=== PATIENT | male | born 1935 | race Caucasian/White ===

== ENCOUNTER 2019-07-20 11:56 | Inpatient (IN) | payer MEDICARE, OTHER ==
[~2019-07-20] VITALS: Ht 180.3 cm; Wt 117.9 kg
[2019-07-20] MEDS ORDERED: HYDROCODONE/ACETAMINOPHEN 5/325MG TABLET PO STA (12:14)
[2019-07-20] MEDS ORDERED: PREDNISONE 20MG TABLET PO ONE (12:15)
[2019-07-20 12:51] LABS: BASOPHILS % 0.8 % (0.0-2.0); HEMATOCRIT. 31.4 % (42.0-52.0); HEMOGLOBIN. 10.4 g/dL (14.0-18.0); LYMPHOCYTES % 9.7 % (20.0-50.0); MEAN CORPUSCULAR HEMOGLOBIN 28.6 pg (28.0-32.0); MEAN CORPUSCULAR VOLUME 86.2 fL (80.0-94.0); MONOCYTES % 5.9 % (2.0-8.0); NEUTROPHILS % 80.6 % (40.0-76.0); PLATELET 229 x1000/uL (130-400); RED BLOOD CELL COUNT 3.64 mill/uL (4.7-6.1); RED CELL DISTRIBUTION WIDTH 15.1 % (11.6-14.6)
[2019-07-20 12:58] LABS: CHLORIDE 95 mEq/L (98-107)
[2019-07-20 12:59] LABS: PROTHROMBIN TIME 10.8 sec (9.6-11.0)
[2019-07-20 17:42] LABS: CLARITY URINE CLOUDY (CLEAR); COLOR URINE YELLOW (YELLOW); KETONES URINE NEGATIVE (NEGATIVE); LEUKOCYTE ESTERASE URINE TRACE (NEGATIVE); NITRITE URINE NEGATIVE (NEGATIVE); OCCULT BLOOD URINE NEGATIVE (NEGATIVE); PROTEIN URINE 2+ (NEGATIVE); SPECIFIC GRAVITY URINE 1.013 (1.005-1.030)
[2019-07-20 23:00] VITALS: BP 162/84
[2019-07-21] MEDS ORDERED: DEXTROSE 50% WATER 50ML SYRINGE IV PRN (00:15)
[2019-07-21] MEDS ORDERED: HYDROCODONE/ACETAMINOPHEN 5/325MG TABLET PO PRN (00:15)
[2019-07-21] MEDS ORDERED: CLONIDINE 0.1MG TABLET PO PRN (00:15)
[2019-07-21] MEDS ORDERED: ALLO300T2 MT (00:42)
[2019-07-21] MEDS ORDERED: ATOR20TA MT (00:43)
[2019-07-21 07:01] LABS: BASOPHILS % 0.2 % (0.0-2.0); HEMATOCRIT. 26.3 % (42.0-52.0); HEMOGLOBIN. 8.7 g/dL (14.0-18.0); LYMPHOCYTES % 7.8 % (20.0-50.0); MEAN CORPUSCULAR HEMOGLOBIN 28.2 pg (28.0-32.0); MEAN CORPUSCULAR VOLUME 84.7 fL (80.0-94.0); MEAN PLATELET VOLUME 8.1 fl (7.4-10.4); MONOCYTES % 5.2 % (2.0-8.0); NEUTROPHILS % 86.8 % (40.0-76.0); PLATELET 246 x1000/uL (130-400); RED CELL DISTRIBUTION WIDTH 14.7 % (11.6-14.6)
[2019-07-21 07:21] LABS: CHLORIDE 99 mEq/L (98-107)
[2019-07-21 07:30] LABS: CREATINE KINASE 97 IU/L (39-308)
[2019-07-21] MEDS: INSULIN LISPRO 100 UNITS/ML SUBCUT SCH ×4 (07:52→21:00)
[2019-07-21 08:00] VITALS: BP 103/61
[2019-07-21] MEDS: BLOOD SUGAR DIAGNOSTIC STRIP TEST SCH ×4 (08:12→20:58)
[2019-07-21] MEDS: LACTULOSE 20G/30ML UDC PO SCH (09:42)
[2019-07-21] MEDS: ALLOPURINOL 300 MG TABLET PO SCH (09:42)
[2019-07-21 12:00] VITALS: BP 134/66
[2019-07-21] MEDS: PREDNISONE 20MG TABLET PO SCH (14:38)
[2019-07-21] MEDS: PANTOPRAZOLE 40MG DR TABLET PO SCH (14:38)
[2019-07-21 16:00] VITALS: BP 110/55
[2019-07-21 20:00] VITALS: BP 129/78
[2019-07-21] MEDS ORDERED: ATORVASTATIN CALCIUM 20MG TABLET PO SCH (21:00)
[2019-07-21 23:11] LABS: CLARITY URINE CLOUDY (CLEAR); COLOR URINE YELLOW (YELLOW); KETONES URINE NEGATIVE (NEGATIVE); LEUKOCYTE ESTERASE URINE NEGATIVE (NEGATIVE); NITRITE URINE NEGATIVE (NEGATIVE); OCCULT BLOOD URINE NEGATIVE (NEGATIVE); PROTEIN URINE TRACE (NEGATIVE); UROBILINOGEN URINE 0.2 E.U./dL (0.2-1.0)
[2019-07-22] VITALS: BP 142/77
[2019-07-22 04:00] VITALS: BP 140/69
[2019-07-22] MEDS: PANTOPRAZOLE 40MG DR TABLET PO SCH (06:25)
[2019-07-22] MEDS: BLOOD SUGAR DIAGNOSTIC STRIP TEST SCH ×3 (06:29→17:50)
[2019-07-22 07:48] LABS: BASOPHILS % 0.2 % (0.0-2.0); EOSINOPHILS % 0.4 % (0.0-5.0); HEMATOCRIT. 26.1 % (42.0-52.0); HEMOGLOBIN. 8.6 g/dL (14.0-18.0); LYMPHOCYTES % 11.2 % (20.0-50.0); MEAN CORPUSCULAR HEMOGLOBIN 27.9 pg (28.0-32.0); MEAN CORPUSCULAR VOLUME 84.8 fL (80.0-94.0); MONOCYTES % 3.9 % (2.0-8.0); NEUTROPHILS % 84.3 % (40.0-76.0); PLATELET 283 x1000/uL (130-400); RED BLOOD CELL COUNT 3.07 mill/uL (4.7-6.1); RED CELL DISTRIBUTION WIDTH 14.9 % (11.6-14.6)
[2019-07-22 08:03] LABS: CHLORIDE 99 mEq/L (98-107)
[2019-07-22 08:13] LABS: PHOSPHORUS 3.1 mg/dL (2.5-4.9)
[2019-07-22 08:14] LABS: LDL CHOLESTEROL 82 mg/dL (5-100)
[2019-07-22 08:16] LABS: HDL CHOLESTEROL 37 mg/dL (40-59)
[2019-07-22] MEDS: ALLOPURINOL 300 MG TABLET PO SCH (08:36)
[2019-07-22] MEDS: PREDNISONE 20MG TABLET PO SCH (08:36)
[2019-07-22] MEDS: LACTULOSE 20G/30ML UDC PO SCH (08:36)
[2019-07-22] MEDS: INSULIN LISPRO 100 UNITS/ML SUBCUT SCH ×3 (08:40→18:00)
[2019-07-22] MEDS ORDERED: BISACODYL 10MG SUPP PR NR (13:45)
[2019-07-22] MEDS ORDERED: GLIP5TAB12 MT (13:46)
[2019-07-22] MEDS ORDERED: FAMO20TA8 PO (13:46)
[2019-07-22] MEDS ORDERED: PRED5TAB48 MT (13:46)
[2019-07-22] MEDS ORDERED: POLY119P2 MT (13:46)
[2019-07-22 16:58] VITALS: BP 134/66
[2019-07-22 19:35] VITALS: BP 139/73
[2019-07-23] MEDS ORDERED: FAMOTIDINE 20MG TABLET PO SCH (09:00)
== END 2019-07-22 20:43 | disposition home or self-care (01) | DRG 683 ==
LOC: ER 11:56 → 6EST 17:01 → EDBEDREQTM 17:05 → EDBEDREQ 17:05 → ENRESERV 20:22
PROVIDERS: ADMIT Internal Medicine; ATTEND Internal Medicine
DX: N17.9 Acute kidney failure, unspecified (principal); E87.1 Hypo-osmolality and hyponatremia; D64.9 Anemia, unspecified; M10.022 Idiopathic gout, left elbow; M10.021 Idiopathic gout, right elbow; M10.062 Idiopathic gout, left knee; M10.061 Idiopathic gout, right knee; E11.22 Type 2 diabetes mellitus with diabetic chronic kidney disease; E66.9 Obesity, unspecified; E11.65 Type 2 diabetes mellitus with hyperglycemia; E78.5 Hyperlipidemia, unspecified; F17.210 Nicotine dependence, cigarettes, uncomplicated; I12.9 Hypertensive chronic kidney disease with stage 1 through stage 4 chronic kidney disease, or unspecified chronic kidney disease; N18.3 Chronic kidney disease, stage 3 (moderate); Z79.84 Long term (current) use of oral hypoglycemic drugs; Z79.899 Other long term (current) drug therapy; Z68.36 Body mass index [BMI] 36.0-36.9, adult
CPT/HCPCS: 36415; 71045; 76770; 80048; 80061; 81003; 82550; 82570; 82784; 82962; 83036; 83735; 84100; 84155; 84156; 84165; 84300; 84484; 84550; 84560; 86334; 93970; 97162; 99285; J1815; J7512

== ENCOUNTER 2020-07-11 12:31 | Inpatient (IN) | payer MEDICARE, OTHER ==
[~2020-07-11] VITALS: Ht 180.3 cm; Wt 127.0 kg
[~2020-07-11 12:31] MED LIST: ALLO300T2 MT; ATOR20TA MT; FAMO20TA8 PO; GLIP5TAB12 MT; POLY119P2 MT; PRED5TAB48 MT
[2020-07-11] MEDS ORDERED: VANCOMYCIN 1 G PREMIX 200 ML IV SCH (13:15)
[2020-07-11] MEDS ORDERED: SODIUM CHLORIDE 0.9% 1000ML BAG (SEPSIS BOLUS) IV ONE (13:15)
[2020-07-11] MEDS ORDERED: PIPERACILLIN/TAZOBACTAM 3.375GM/50ML PREMIX IV ONE (13:15)
[2020-07-11] MEDS ORDERED: PIPERACILLIN/TAZ 3.375G PREMIX 50 ML IV ONE (13:30)
[2020-07-11 13:52] LABS: BASOPHILS % 0.9 % (0.0-2.0); EOSINOPHILS % 4.6 % (0.0-5.0); LYMPHOCYTES % 8.7 % (20.0-50.0); MEAN CORPUSCULAR HEMOGLOBIN 24.6 pg (28.0-32.0); MEAN CORPUSCULAR VOLUME 78.2 fL (80.0-94.0); MEAN PLATELET VOLUME 7.1 fl (7.4-10.4); MONOCYTES % 6.4 % (2.0-8.0); NEUTROPHILS % 79.4 % (40.0-76.0); PLATELET 355 x1000/uL (130-400); RED BLOOD CELL COUNT 2.27 mill/uL (4.7-6.1); RED CELL DISTRIBUTION WIDTH 16.4 % (11.6-14.6)
[2020-07-11 13:57] LABS: CHLORIDE 107 mEq/L (98-107); HEMATOCRIT. 17.7 % (42.0-52.0); HEMOGLOBIN. 5.6 g/dL (14.0-18.0)
[2020-07-11] MEDS ORDERED: DEXTROSE 50% WATER 50ML SYRINGE IV ONE (19:00)
[2020-07-11] MEDS ORDERED: GUAIFENESIN 200MG/10ML SUGAR FREE UDC PO PRN (19:00)
[2020-07-11] MEDS ORDERED: ACETAMINOPHEN 325MG TABLET PO PRN ×2 (19:00)
[2020-07-11] MEDS ORDERED: MAGNESIUM/ALUMINUM HYDROXIDE/SIMETHICONE 30ML UDC PO PRN (19:00)
[2020-07-11] MEDS ORDERED: NITROGLYCERIN 0.4MG TABLET SL SL PRN (19:00)
[2020-07-11] MEDS ORDERED: IPRATROPIUM/ALBUTEROL 0.5-3(2.5)MG/3ML NEB NEB PRN (19:00)
[2020-07-11] MEDS ORDERED: DEXTROSE 50% WATER 50ML SYRINGE IV PRN (19:00)
[2020-07-11] MEDS ORDERED: ONDANSETRON HCL 4MG/2ML INJ IV PRN (19:00)
[2020-07-11 19:54] LABS: CLARITY URINE CLEAR (CLEAR); COLOR URINE YELLOW (YELLOW); KETONES URINE NEGATIVE (NEGATIVE); LEUKOCYTE ESTERASE URINE TRACE (NEGATIVE); NITRITE URINE NEGATIVE (NEGATIVE); OCCULT BLOOD URINE 2+ (NEGATIVE); PROTEIN URINE 2+ (NEGATIVE); SPECIFIC GRAVITY URINE 1.018 (1.005-1.030)
[2020-07-11] MEDS ORDERED: CEFTRIAXONE 1 G PREMIX 50 ML IV SCH (20:00)
[2020-07-11] MEDS ORDERED: ZOLPIDEM TARTRATE 5MG TABLET PO PRN (20:00)
[2020-07-11 20:14] LABS: *BARBITURATES SCREEN URINE NEGATIVE (NEGATIVE); METHADONE URINE SCREEN NEGATIVE (NEGATIVE); OPIATES URINE SCREEN NEGATIVE (NEGATIVE); PHENCYCLIDINE URINE SCREEN NEGATIVE (NEGATIVE)
[2020-07-11 20:15] VITALS: BP 128/54
[2020-07-11 20:15] LABS: *AMPHETAMINES SCREEN URINE NEGATIVE (NEGATIVE); *BENZODIAZEPINES SCREEN URINE NEGATIVE (NEGATIVE); *COCAINE SCREEN URINE NEGATIVE (NEGATIVE); CANNABINOID URINE SCREEN NEGATIVE (NEGATIVE)
[2020-07-11 20:18] LABS: T4 FREE 1.2 ng/dL (0.76-1.46)
[2020-07-11 20:28] LABS: FOLIC ACID (FOLATE) SERUM 11.2 ng/mL (>5.38)
[2020-07-11] MEDS: INSULIN LISPRO 100 UNITS/ML SUBCUT SCH (21:00)
[2020-07-11] MEDS: BLOOD SUGAR DIAGNOSTIC STRIP TEST SCH (21:00)
[2020-07-11 21:20] VITALS: BP 141/55
[2020-07-11] MEDS: PANTOPRAZOLE SODIUM 40 MG/VIAL IV SCH (21:40)
[2020-07-11] MEDS: DEXT 5%/LACTATED RINGERS 1,000 ML IV SCH (22:35)
[2020-07-12] VITALS (16 sets, daily range): BP systolic 94–151; BP diastolic 35–77
[2020-07-12 00:15] LABS: CREATINE KINASE MB FRACTION 8.5 ng/mL (0.5-3.6)
[2020-07-12] MEDS: CEFTRIAXONE 1,000 MG in DEXTROSE 5% WATER 50 ML IV SCH ×2 (00:39→23:11)
[2020-07-12 00:46] LABS: CREATINE KINASE 1340 IU/L (39-308)
[2020-07-12] MEDS: BLOOD SUGAR DIAGNOSTIC STRIP TEST SCH ×4 (05:42→21:28)
[2020-07-12 06:33] LABS: BASOPHILS % 0.4 % (0.0-2.0); EOSINOPHILS % 7.9 % (0.0-5.0); LYMPHOCYTES % 9.6 % (20.0-50.0); MEAN CORPUSCULAR HEMOGLOBIN 25.9 pg (28.0-32.0); MEAN CORPUSCULAR VOLUME 79.1 fL (80.0-94.0); MEAN PLATELET VOLUME 7.6 fl (7.4-10.4); MONOCYTES % 5.6 % (2.0-8.0); NEUTROPHILS % 76.5 % (40.0-76.0); PLATELET 338 x1000/uL (130-400); RED BLOOD CELL COUNT 2.46 mill/uL (4.7-6.1); RED CELL DISTRIBUTION WIDTH 16.7 % (11.6-14.6)
[2020-07-12 06:42] LABS: CHLORIDE 109 mEq/L (98-107)
[2020-07-12 06:48] LABS: PHOSPHORUS 3.1 mg/dL (2.5-4.9)
[2020-07-12 06:51] LABS: CREATINE KINASE 986 IU/L (39-308); HEMATOCRIT. 19.5 % (42.0-52.0); HEMOGLOBIN. 6.4 g/dL (14.0-18.0)
[2020-07-12 06:52] LABS: CREATINE KINASE MB FRACTION 7.6 ng/mL (0.5-3.6)
[2020-07-12] MEDS: INSULIN LISPRO 100 UNITS/ML SUBCUT SCH ×4 (07:08→21:00)
[2020-07-12] MEDS: DEXT 5%/LACTATED RINGERS 1,000 ML IV SCH ×2 (09:39→21:29)
[2020-07-12] MEDS: PANTOPRAZOLE SODIUM 40 MG/VIAL IV SCH ×2 (10:03→21:25)
[2020-07-12] MEDS: DOCUSATE SODIUM 250MG CAPSULE PO SCH ×2 (10:04→16:52)
[2020-07-12 16:04] LABS: HEMATOCRIT 41.4 % (42.0-52.0); HEMOGLOBIN 13.4 g/dL (14.0-18.0)
[2020-07-12 16:11] LABS: PROTHROMBIN TIME 10.8 sec (9.6-11.0)
[2020-07-13] VITALS (7 sets, daily range): BP systolic 120–148; BP diastolic 52–66
[2020-07-13] MEDS: BLOOD SUGAR DIAGNOSTIC STRIP TEST SCH ×3 (06:50→21:00)
[2020-07-13] MEDS: INSULIN LISPRO 100 UNITS/ML SUBCUT SCH ×3 (06:50→22:13)
[2020-07-13 08:54] LABS: CHLORIDE 110 mEq/L (98-107)
[2020-07-13 09:01] LABS: BASOPHILS % 0.7 % (0.0-2.0); EOSINOPHILS % 9.9 % (0.0-5.0); LYMPHOCYTES % 16.4 % (20.0-50.0); MEAN CORPUSCULAR HEMOGLOBIN 26.7 pg (28.0-32.0); MEAN CORPUSCULAR VOLUME 80.2 fL (80.0-94.0); MEAN PLATELET VOLUME 7.7 fl (7.4-10.4); MONOCYTES % 6.2 % (2.0-8.0); NEUTROPHILS % 66.8 % (40.0-76.0); PLATELET 320 x1000/uL (130-400); RED BLOOD CELL COUNT 2.61 mill/uL (4.7-6.1); RED CELL DISTRIBUTION WIDTH 16.4 % (11.6-14.6)
[2020-07-13 09:05] LABS: PHOSPHORUS 3.2 mg/dL (2.5-4.9)
[2020-07-13 09:06] LABS: HEMATOCRIT. 20.9 % (42.0-52.0)
[2020-07-13] MEDS: PANTOPRAZOLE SODIUM 40 MG/VIAL IV SCH ×2 (09:42→22:12)
[2020-07-13] MEDS: DOCUSATE SODIUM 250MG CAPSULE PO SCH ×2 (09:43→18:22)
[2020-07-13] MEDS: DEXT 5%/LACTATED RINGERS 1,000 ML IV SCH (09:44)
[2020-07-13] MEDS ORDERED: SORBITOL 70% SOLN 30ML PO NR ×2 (17:15→21:15)
[2020-07-13] MEDS: METOCLOPRAMIDE HCL 5MG TABLET PO SCH ×2 (18:27→22:12)
[2020-07-13] MEDS: CEFTRIAXONE 1,000 MG in DEXTROSE 5% WATER 50 ML IV SCH (22:16)
[2020-07-13 23:59] LABS: HEMATOCRIT 21.8 % (42.0-52.0); HEMOGLOBIN 7.1 g/dL (14.0-18.0)
[2020-07-14] VITALS: BP 107/65
[2020-07-14 04:00] VITALS: BP 115/56
[2020-07-14] MEDS ORDERED: SORBITOL 70% SOLN 30ML PO NR ×2 (07:00→18:00)
[2020-07-14 07:40] LABS: HEMATOCRIT 21.1 % (42.0-52.0); HEMOGLOBIN 7.1 g/dL (14.0-18.0)
[2020-07-14] MEDS: INSULIN LISPRO 100 UNITS/ML SUBCUT SCH ×4 (07:40→21:00)
[2020-07-14 08:00] VITALS: BP 134/59
[2020-07-14] MEDS: DEXT 5%/LACTATED RINGERS 1,000 ML IV SCH ×3 (08:00→20:31)
[2020-07-14] MEDS: BLOOD SUGAR DIAGNOSTIC STRIP TEST SCH ×4 (08:00→21:09)
[2020-07-14] MEDS: DOCUSATE SODIUM 250MG CAPSULE PO SCH ×2 (09:43→16:19)
[2020-07-14] MEDS: PANTOPRAZOLE SODIUM 40 MG/VIAL IV SCH ×2 (09:43→20:31)
[2020-07-14 12:09] LABS: HEMATOCRIT 21.7 % (42.0-52.0); HEMOGLOBIN 7.1 g/dL (14.0-18.0)
[2020-07-14] MEDS ORDERED: MIDAZOLAM HCL 5 MG/5 ML VIAL ONE (13:53)
[2020-07-14] MEDS ORDERED: FENTANYL CITRATE/PF 50MCG/ML 2ML VIAL ONE (13:53)
[2020-07-14] MEDS ORDERED: FENTANYL CITRATE/PF 50MCG/ML 2ML VIAL IV ONE (14:00)
[2020-07-14] MEDS ORDERED: MIDAZOLAM HCL 5 MG/5 ML VIAL IV PRN (14:03)
[2020-07-14 16:00] VITALS: BP_SYST 139
[2020-07-14 20:00] VITALS: BP 154/77
[2020-07-14] MEDS: CEFTRIAXONE 1,000 MG in DEXTROSE 5% WATER 50 ML IV SCH (22:02)
[2020-07-15] VITALS: BP 142/69
[2020-07-15 04:00] VITALS: BP 156/82
[2020-07-15] MEDS: BLOOD SUGAR DIAGNOSTIC STRIP TEST SCH ×4 (06:39→20:01)
[2020-07-15] MEDS: INSULIN LISPRO 100 UNITS/ML SUBCUT SCH ×4 (06:39→20:05)
[2020-07-15 08:00] VITALS: BP 135/60
[2020-07-15] MEDS ORDERED: SORBITOL 70% SOLN 30ML PO NR (08:00)
[2020-07-15 09:06] LABS: HEMATOCRIT 22.5 % (42.0-52.0); HEMOGLOBIN 7.5 g/dL (14.0-18.0)
[2020-07-15] MEDS: DOCUSATE SODIUM 250MG CAPSULE PO SCH ×2 (09:21→18:46)
[2020-07-15] MEDS: PANTOPRAZOLE SODIUM 40 MG/VIAL IV SCH ×2 (09:21→20:01)
[2020-07-15] MEDS ORDERED: NA PHOS,M-B/NA PHOS,DI-BA ENEMA 118ML PR NR ×2 (11:00→12:00)
[2020-07-15] MEDS: AMMONIUM LACTATE 12% LOTION 240ML TOP SCH ×2 (11:36→18:47)
[2020-07-15 12:00] VITALS: BP 170/78
[2020-07-15] MEDS: CLONIDINE 0.1MG TABLET PO PRN (14:41)
[2020-07-15] MEDS ORDERED: FENTANYL CITRATE/PF 50MCG/ML 2ML VIAL ONE (15:55)
[2020-07-15] MEDS ORDERED: MIDAZOLAM HCL 5 MG/5 ML VIAL ONE (15:55)
[2020-07-15] MEDS ORDERED: SIMETHICONE 40 MG/0.6 ML 30ML ONE (16:09)
[2020-07-15] MEDS ORDERED: FENTANYL CITRATE/PF 50MCG/ML 2ML VIAL IV PRN (16:32)
[2020-07-15] MEDS ORDERED: MIDAZOLAM HCL 5 MG/5 ML VIAL IV PRN (16:33)
[2020-07-15] MEDS: DEXT 5%/LACTATED RINGERS 1,000 ML IV SCH (18:47)
[2020-07-15 20:00] VITALS: BP 140/62
[2020-07-15] MEDS: CEFTRIAXONE 1,000 MG in DEXTROSE 5% WATER 50 ML IV SCH (23:25)
[2020-07-16] VITALS: BP 131/62
[2020-07-16 04:00] VITALS: BP 121/62
[2020-07-16 08:00] VITALS: BP 143/64
[2020-07-16] MEDS: AMMONIUM LACTATE 12% LOTION 240ML TOP SCH ×2 (08:41→17:02)
[2020-07-16] MEDS: DOCUSATE SODIUM 250MG CAPSULE PO SCH ×2 (08:41→17:02)
[2020-07-16] MEDS: PANTOPRAZOLE SODIUM 40 MG/VIAL IV SCH ×2 (08:41→20:39)
[2020-07-16 12:00] VITALS: BP 157/78
[2020-07-16] MEDS: INSULIN LISPRO 100 UNITS/ML SUBCUT SCH ×3 (12:25→20:40)
[2020-07-16] MEDS: BLOOD SUGAR DIAGNOSTIC STRIP TEST SCH ×3 (12:25→20:39)
[2020-07-16] MEDS ORDERED: DIATR MEGLU/DIATRIZOATE SOLN 120ML ONE ×2 (12:57→13:18)
[2020-07-16 16:00] VITALS: BP 150/72
[2020-07-16] MEDS: DEXT 5%/LACTATED RINGERS 1,000 ML IV SCH (18:34)
[2020-07-16 20:00] VITALS: BP 127/63
[2020-07-16] MEDS: CEFTRIAXONE 1,000 MG in DEXTROSE 5% WATER 50 ML IV SCH (23:05)
[2020-07-17] VITALS: BP 118/66
[2020-07-17 04:00] VITALS: BP 122/60
[2020-07-17] MEDS: INSULIN LISPRO 100 UNITS/ML SUBCUT SCH ×4 (06:20→20:58)
[2020-07-17] MEDS: BLOOD SUGAR DIAGNOSTIC STRIP TEST SCH ×4 (06:20→20:58)
[2020-07-17 08:00] VITALS: BP 126/58
[2020-07-17] MEDS: DOCUSATE SODIUM 250MG CAPSULE PO SCH ×2 (08:19→16:49)
[2020-07-17] MEDS: PANTOPRAZOLE SODIUM 40 MG/VIAL IV SCH ×2 (08:19→20:58)
[2020-07-17] MEDS: DEXT 5%/LACTATED RINGERS 1,000 ML IV SCH (08:30)
[2020-07-17] MEDS: AMMONIUM LACTATE 12% LOTION 240ML TOP SCH ×2 (09:00→16:49)
[2020-07-17 17:34] LABS: HEMATOCRIT 23.1 % (42.0-52.0); HEMOGLOBIN 7.4 g/dL (14.0-18.0)
[2020-07-17 20:00] VITALS: BP 145/71
[2020-07-18 00:24] VITALS: BP 134/69
[2020-07-18 04:25] VITALS: BP 148/75
[2020-07-18] MEDS: INSULIN LISPRO 100 UNITS/ML SUBCUT SCH ×4 (06:08→21:53)
[2020-07-18] MEDS: BLOOD SUGAR DIAGNOSTIC STRIP TEST SCH ×4 (06:08→21:54)
[2020-07-18 08:00] VITALS: BP 140/70
[2020-07-18] MEDS: ZINC SULFATE 220 MG ( 50 ) CAPSULE PO SCH (09:37)
[2020-07-18] MEDS: PANTOPRAZOLE SODIUM 40 MG/VIAL IV SCH ×2 (09:37→21:52)
[2020-07-18] MEDS: DOCUSATE SODIUM 250MG CAPSULE PO SCH ×2 (09:37→16:45)
[2020-07-18] MEDS: ASCORBIC ACID 500 MG TABLET PO SCH (09:37)
[2020-07-18] MEDS: AMMONIUM LACTATE 12% LOTION 240ML TOP SCH ×2 (10:02→16:50)
[2020-07-18 12:00] VITALS: BP 138/72
[2020-07-18 16:00] VITALS: BP 144/71
[2020-07-18 20:00] VITALS: BP 131/51
[2020-07-19] VITALS: BP 130/65
[2020-07-19 04:00] VITALS: BP 161/75
[2020-07-19] MEDS: INSULIN LISPRO 100 UNITS/ML SUBCUT SCH ×4 (06:26→20:40)
[2020-07-19] MEDS: BLOOD SUGAR DIAGNOSTIC STRIP TEST SCH ×4 (06:26→20:26)
[2020-07-19 08:00] VITALS: BP 137/63
[2020-07-19] MEDS: ASCORBIC ACID 500 MG TABLET PO SCH (09:54)
[2020-07-19] MEDS: AMMONIUM LACTATE 12% LOTION 240ML TOP SCH ×2 (09:54→17:51)
[2020-07-19] MEDS: PANTOPRAZOLE SODIUM 40 MG/VIAL IV SCH ×2 (09:54→20:26)
[2020-07-19] MEDS: DOCUSATE SODIUM 250MG CAPSULE PO SCH ×2 (09:54→18:09)
[2020-07-19] MEDS: ZINC SULFATE 220 MG ( 50 ) CAPSULE PO SCH (09:54)
[2020-07-19 12:00] VITALS: BP 129/63
[2020-07-19 16:00] VITALS: BP 161/82
[2020-07-19 20:00] VITALS: BP 141/71
[2020-07-20] VITALS: BP 114/72
[2020-07-20] MEDS: DEXT 5%/LACTATED RINGERS 1,000 ML IV SCH ×2 (03:40→16:56)
[2020-07-20 04:00] VITALS: BP 163/79
[2020-07-20] MEDS: CLONIDINE 0.1MG TABLET PO PRN (05:19)
[2020-07-20] MEDS: BLOOD SUGAR DIAGNOSTIC STRIP TEST SCH ×4 (07:02→20:28)
[2020-07-20] MEDS: INSULIN LISPRO 100 UNITS/ML SUBCUT SCH ×4 (07:02→21:00)
[2020-07-20 08:00] VITALS: BP 147/74
[2020-07-20] MEDS: DOCUSATE SODIUM 250MG CAPSULE PO SCH ×2 (08:08→16:48)
[2020-07-20] MEDS: ASCORBIC ACID 500 MG TABLET PO SCH (08:08)
[2020-07-20] MEDS: AMMONIUM LACTATE 12% LOTION 240ML TOP SCH ×2 (08:08→16:48)
[2020-07-20] MEDS: ZINC SULFATE 220 MG ( 50 ) CAPSULE PO SCH (08:08)
[2020-07-20] MEDS: PANTOPRAZOLE SODIUM 40 MG/VIAL IV SCH ×2 (08:08→20:28)
[2020-07-20 12:00] VITALS: BP 122/60
[2020-07-20 20:00] VITALS: BP 148/80
[2020-07-21] VITALS (7 sets, daily range): BP systolic 130–154; BP diastolic 50–87
[2020-07-21] MEDS: IRON SUCROSE COMPLEX 100 MG/5 ML ML IV SCH (05:02)
[2020-07-21] MEDS: DEXT 5%/LACTATED RINGERS 1,000 ML IV SCH (05:12)
[2020-07-21] MEDS: BLOOD SUGAR DIAGNOSTIC STRIP TEST SCH ×4 (06:47→21:34)
[2020-07-21] MEDS: INSULIN LISPRO 100 UNITS/ML SUBCUT SCH ×4 (06:47→21:00)
[2020-07-21 07:03] LABS: BASOPHILS % 0.5 % (0.0-2.0); EOSINOPHILS % 14.9 % (0.0-5.0); HEMATOCRIT. 22.2 % (42.0-52.0); HEMOGLOBIN. 7.3 g/dL (14.0-18.0); LYMPHOCYTES % 19.1 % (20.0-50.0); MEAN CORPUSCULAR HEMOGLOBIN 26.7 pg (28.0-32.0); MEAN CORPUSCULAR VOLUME 80.8 fL (80.0-94.0); MEAN PLATELET VOLUME 8.3 fl (7.4-10.4); MONOCYTES % 4.8 % (2.0-8.0); NEUTROPHILS % 60.7 % (40.0-76.0); PLATELET 258 x1000/uL (130-400); RED BLOOD CELL COUNT 2.74 mill/uL (4.7-6.1); RED CELL DISTRIBUTION WIDTH 16.7 % (11.6-14.6)
[2020-07-21] MEDS: AMMONIUM LACTATE 12% LOTION 240ML TOP SCH ×2 (09:00→17:46)
[2020-07-21] MEDS: DOCUSATE SODIUM 100MG CAPSULE PO PRN ×3 (09:48→09:51)
[2020-07-21] MEDS: ZINC SULFATE 220 MG ( 50 ) CAPSULE PO SCH ×2 (09:48→09:50)
[2020-07-21] MEDS: ASCORBIC ACID 500 MG TABLET PO SCH ×2 (09:48→09:50)
[2020-07-21] MEDS: PANTOPRAZOLE SODIUM 40 MG/VIAL IV SCH ×2 (09:48→09:50)
[2020-07-21] MEDS: DOCUSATE SODIUM 250MG CAPSULE PO SCH ×2 (09:51→17:46)
[2020-07-22] VITALS: BP 128/70
[2020-07-22 04:00] VITALS: BP 130/80
[2020-07-22] MEDS: DEXT 5%/LACTATED RINGERS 1,000 ML IV SCH ×2 (05:51→09:27)
[2020-07-22] MEDS: INSULIN LISPRO 100 UNITS/ML SUBCUT SCH ×2 (07:40→12:40)
[2020-07-22] MEDS: BLOOD SUGAR DIAGNOSTIC STRIP TEST SCH ×2 (07:41→12:10)
[2020-07-22 08:00] VITALS: BP 139/60
[2020-07-22] MEDS: PANTOPRAZOLE SODIUM 40 MG/VIAL IV SCH (09:27)
[2020-07-22] MEDS: DOCUSATE SODIUM 100MG CAPSULE PO PRN ×2 (09:28→09:29)
[2020-07-22] MEDS: AMMONIUM LACTATE 12% LOTION 240ML TOP SCH (09:28)
[2020-07-22] MEDS: IRON SUCROSE COMPLEX 100 MG/5 ML ML IV SCH (09:28)
[2020-07-22] MEDS: DOCUSATE SODIUM 250MG CAPSULE PO SCH (09:31)
[2020-07-22 12:00] VITALS: BP 138/75
[2020-07-22 12:57] VITALS: BP 138/75
== END 2020-07-22 15:45 | DRG 871 ==
LOC: ER 12:31 → 8WST 13:51 → ENRESERV 18:17 → SUPCPDRO 20:55 → 8WST 21:29
PROVIDERS: ADMIT Internal Medicine; ATTEND Internal Medicine
PROC: 30233N1 Transfusion of Nonautologous Red Blood Cells into Peripheral Vein, Percutaneous Approach (ICD-10-PCS; 2020-07-11)
PROC: 0DB78ZX Excision of Stomach, Pylorus, Via Natural or Artificial Opening Endoscopic, Diagnostic (ICD-10-PCS; principal; 2020-07-14)
PROC: 0DJD8ZZ Inspection of Lower Intestinal Tract, Via Natural or Artificial Opening Endoscopic (ICD-10-PCS; 2020-07-15)
DX: A41.9 Sepsis, unspecified organism (principal); E43 Unspecified severe protein-calorie malnutrition; G92 Toxic encephalopathy; N17.0 Acute kidney failure with tubular necrosis; N39.0 Urinary tract infection, site not specified; L97.909 Non-pressure chronic ulcer of unspecified part of unspecified lower leg with unspecified severity; E66.01 Morbid (severe) obesity due to excess calories; I87.8 Other specified disorders of veins; I89.0 Lymphedema, not elsewhere classified; L60.2 Onychogryphosis; E78.5 Hyperlipidemia, unspecified; K25.9 Gastric ulcer, unspecified as acute or chronic, without hemorrhage or perforation; K29.70 Gastritis, unspecified, without bleeding; K64.8 Other hemorrhoids; L85.3 Xerosis cutis; M10.9 Gout, unspecified; F22 Delusional disorders; E11.9 Type 2 diabetes mellitus without complications; I10 Essential (primary) hypertension; R74.8 Abnormal levels of other serum enzymes; D50.9 Iron deficiency anemia, unspecified; I48.91 Unspecified atrial fibrillation; Z99.3 Dependence on wheelchair; Z74.01 Bed confinement status; Z68.39 Body mass index [BMI] 39.0-39.9, adult; Z86.73 Personal history of transient ischemic attack (TIA), and cerebral infarction without residual deficits; Z03.818 Encounter for observation for suspected exposure to other biological agents ruled out
CPT/HCPCS: 36415; 70551; 71045; 74270; 76770; 80048; 80053; 80061; 80305; 81003; 82550; 82553; 82607; 82728; 82746; 82962; 83036; 83540; 83550; 83605; 83735; 83880; 84100; 84134; 84145; 84439; 84443; 84484; 85014; 85018; 85025; 85049; 85379; 85384; 86850; 86900; 86920; 87635; 88304; 88305; 88313; 93005; 93306; 93923; 93970; 97022; 97110; 97162; 97166; 97535; 99152; 99291; C9113; J0696; J1815; J2250; J2543; J3010; J3370; J7030; J7060; J8597; P9016; Q9963; G0500

== ENCOUNTER 2021-02-25 23:35 | Emergency (ER) | payer MEDICARE, OTHER ==
[~2021-02-25] VITALS: Ht 182.9 cm; Wt 109.0 kg
[~2021-02-25 23:35] MED LIST changes: +SIMV-46 PO
[2021-02-26 00:46] LABS: BASOPHILS % 0.7 % (0.0-2.0); EOSINOPHILS % 3.2 % (0.0-5.0); HEMATOCRIT. 33.8 % (42.0-52.0); HEMOGLOBIN. 10.8 g/dL (14.0-18.0); LYMPHOCYTES % 12.5 % (20.0-50.0); MEAN CORPUSCULAR HEMOGLOBIN 28.6 pg (28.0-32.0); MEAN CORPUSCULAR VOLUME 89.1 fL (80.0-94.0); MEAN PLATELET VOLUME 8.5 fl (7.4-10.4); MONOCYTES % 4.8 % (2.0-8.0); NEUTROPHILS % 78.8 % (40.0-76.0); PLATELET 254 x1000/uL (130-400); RED CELL DISTRIBUTION WIDTH 13.5 % (11.6-14.6)
[2021-02-26 01:01] LABS: CHLORIDE 103 mEq/L (98-107)
[2021-02-26 05:23] VITALS: BP 123/76
== END 2021-02-26 05:37 ==
LOC: ER 23:35
DX: D64.9 Anemia, unspecified (principal); I12.9 Hypertensive chronic kidney disease with stage 1 through stage 4 chronic kidney disease, or unspecified chronic kidney disease; N18.9 Chronic kidney disease, unspecified; E11.9 Type 2 diabetes mellitus without complications
CPT/HCPCS: 36415; 80053; 85025; 86850; 86900; 93005; 99285

== ENCOUNTER 2021-07-10 15:27 | Inpatient (IN) | payer MEDICARE, MEDICAID ==
[~2021-07-10] VITALS: Ht 188 cm; Wt 103.6 kg
[2021-07-10 18:14] LABS: BASOPHILS % 1.2 % (0.0-2.0); EOSINOPHILS % 7.1 % (0.0-5.0); HEMATOCRIT. 34.6 % (42.0-52.0); HEMOGLOBIN. 11.4 g/dL (14.0-18.0); LYMPHOCYTES % 18.7 % (20.0-50.0); MEAN CORPUSCULAR HEMOGLOBIN 28.4 pg (28.0-32.0); MEAN CORPUSCULAR VOLUME 86.1 fL (80.0-94.0); MEAN PLATELET VOLUME 9.7 fl (7.4-10.4); MONOCYTES % 8.2 % (2.0-8.0); NEUTROPHILS % 64.8 % (40.0-76.0); RED BLOOD CELL COUNT 4.02 mill/uL (4.7-6.1); RED CELL DISTRIBUTION WIDTH 12.8 % (11.6-14.6)
[2021-07-10 18:16] LABS: CHLORIDE 107 mEq/L (98-107)
[2021-07-10 18:22] LABS: PARTIAL THROMBOPLASTIN TIME 26.4 sec (23.4-31.0); PROTHROMBIN TIME 11.2 sec (9.6-11.0)
[2021-07-10] MEDS ORDERED: VANCOMYCIN 1 G PREMIX 200 ML IV ONE (19:30)
[2021-07-10] MEDS ORDERED: PIPERACILLIN/TAZ 3.375G PREMIX 50 ML IV ONE (19:30)
[2021-07-10 22:30] VITALS: BP 135/73
[2021-07-11] VITALS (8 sets, daily range): BP systolic 122–154; BP diastolic 69–96
[2021-07-11] MEDS ORDERED: HYDR-4001 PO (00:10)
[2021-07-11] MEDS ORDERED: HYDR100T26 PO (00:16)
[2021-07-11] MEDS ORDERED: DOCU-150 PO (00:16)
[2021-07-11] MEDS ORDERED: SENN-257 PO (00:16)
[2021-07-11] MEDS ORDERED: MULT-1116 PO (00:16)
[2021-07-11] MEDS ORDERED: FERR325T6 PO (00:16)
[2021-07-11] MEDS ORDERED: AMLO10TA80 PO (00:16)
[2021-07-11] MEDS ORDERED: DOCUSATE SODIUM 100MG CAPSULE PO PRN (02:30)
[2021-07-11] MEDS ORDERED: ACETAMINOPHEN 325MG TABLET PO PRN (02:30)
[2021-07-11] MEDS ORDERED: ONDANSETRON HCL 4MG/2ML INJ IV PRN (02:30)
[2021-07-11] MEDS ORDERED: DEXTROSE 50% WATER 50ML SYRINGE IV PRN (02:30)
[2021-07-11] MEDS: BLOOD SUGAR DIAGNOSTIC STRIP TEST SCH ×2 (06:32→13:27)
[2021-07-11] MEDS: INSULIN LISPRO 100 UNITS/ML SUBCUT SCH ×2 (08:10→13:10)
[2021-07-11] MEDS: AMLODIPINE 10MG TABLET PO SCH (09:05)
[2021-07-11] MEDS: FERROUS SULFATE 325MG TABLET PO SCH ×2 (09:05→18:24)
[2021-07-11 09:50] LABS: BASOPHILS % 1.2 % (0.0-2.0); EOSINOPHILS % 9.4 % (0.0-5.0); HEMOGLOBIN. 10.7 g/dL (14.0-18.0); MEAN CORPUSCULAR HEMOGLOBIN 28.2 pg (28.0-32.0); MEAN CORPUSCULAR VOLUME 86.9 fL (80.0-94.0); MEAN PLATELET VOLUME 9.8 fl (7.4-10.4); NEUTROPHILS % 65.4 % (40.0-76.0); RED BLOOD CELL COUNT 3.79 mill/uL (4.7-6.1); RED CELL DISTRIBUTION WIDTH 12.9 % (11.6-14.6)
[2021-07-11 09:54] LABS: PLATELET 14 x1000/uL (130-400)
[2021-07-11 09:56] LABS: PLATELET 20 x1000/uL (130-400)
[2021-07-11 10:25] LABS: VITAMIN B12 SERUM 665 pg/mL (211-911)
[2021-07-11] MEDS ORDERED: AMLODIPINE 10MG TABLET PO SCH (13:30)
[2021-07-11 17:13] LABS: FERRITIN 139 ng/mL (22-322)
[2021-07-11 17:14] LABS: FOLIC ACID (FOLATE) SERUM >20 ng/mL ng/mL (>5.38)
[2021-07-11 17:24] LABS: HEPATITIS B SURFACE ANTIGEN NEGATIVE
[2021-07-12] VITALS (12 sets, daily range): BP systolic 106–121; BP diastolic 53–86
[2021-07-12 04:08] LABS: HIV SCREEN 4G Non Reactive (Non Reactive)
[2021-07-12 06:47] LABS: BASOPHILS % 1.1 % (0.0-2.0); EOSINOPHILS % 9.8 % (0.0-5.0); HEMATOCRIT. 33.4 % (42.0-52.0); LYMPHOCYTES % 22.2 % (20.0-50.0); MEAN CORPUSCULAR HEMOGLOBIN 28.3 pg (28.0-32.0); MEAN CORPUSCULAR VOLUME 86.2 fL (80.0-94.0); MEAN PLATELET VOLUME 9.7 fl (7.4-10.4); MONOCYTES % 7.8 % (2.0-8.0); NEUTROPHILS % 59.1 % (40.0-76.0); RED BLOOD CELL COUNT 3.88 mill/uL (4.7-6.1); RED CELL DISTRIBUTION WIDTH 12.9 % (11.6-14.6)
[2021-07-12 07:46] LABS: PLATELET 15 x1000/uL (130-400)
[2021-07-12] MEDS: FERROUS SULFATE 325MG TABLET PO SCH ×2 (09:46→18:54)
[2021-07-12] MEDS: AMLODIPINE 10MG TABLET PO SCH (09:46)
[2021-07-12] MEDS ORDERED: VANCOMYCIN 2,000 MG in DEXT 5% WATER 500 ML IV NR (14:00)
[2021-07-13] VITALS: BP 110/67
[2021-07-13 04:00] VITALS: BP 104/68
[2021-07-13] MEDS ORDERED: VANCOMYCIN 1 G PREMIX 200 ML IV SCH (07:00)
[2021-07-13 08:00] VITALS: BP 127/82
[2021-07-13 08:42] LABS: BASOPHILS % 1.1 % (0.0-2.0); EOSINOPHILS % 8.3 % (0.0-5.0); HEMATOCRIT. 34.4 % (42.0-52.0); HEMOGLOBIN. 11.4 g/dL (14.0-18.0); LYMPHOCYTES % 27.4 % (20.0-50.0); MEAN CORPUSCULAR HEMOGLOBIN 28.4 pg (28.0-32.0); MEAN CORPUSCULAR VOLUME 85.9 fL (80.0-94.0); MEAN PLATELET VOLUME 10.5 fl (7.4-10.4); MONOCYTES % 7.5 % (2.0-8.0); NEUTROPHILS % 55.7 % (40.0-76.0); RED BLOOD CELL COUNT 4.01 mill/uL (4.7-6.1); RED CELL DISTRIBUTION WIDTH 12.4 % (11.6-14.6)
[2021-07-13 08:52] LABS: PLATELET 13 x1000/uL (130-400)
[2021-07-13] MEDS: AMLODIPINE 10MG TABLET PO SCH (08:52)
[2021-07-13] MEDS: PREDNISONE 20MG TABLET PO SCH ×4 (08:52→22:14)
[2021-07-13] MEDS: FERROUS SULFATE 325MG TABLET PO SCH ×2 (08:55→18:37)
[2021-07-13] MEDS: CYANOCOBALAMIN 1000MCG TABLET PO SCH (11:06)
[2021-07-13 11:36] VITALS: BP 147/87
[2021-07-13 16:12] VITALS: BP 131/78
[2021-07-13 20:00] VITALS: BP 124/69
[2021-07-14] VITALS: BP 124/74
[2021-07-14 04:00] VITALS: BP 128/65
[2021-07-14 05:20] LABS: BASOPHILS % 0.2 % (0.0-2.0); HEMATOCRIT. 35.2 % (42.0-52.0); HEMOGLOBIN. 11.6 g/dL (14.0-18.0); LYMPHOCYTES % 16.9 % (20.0-50.0); MEAN CORPUSCULAR HEMOGLOBIN 28.1 pg (28.0-32.0); MEAN CORPUSCULAR VOLUME 84.8 fL (80.0-94.0); MEAN PLATELET VOLUME 10.5 fl (7.4-10.4); MONOCYTES % 2.2 % (2.0-8.0); NEUTROPHILS % 80.7 % (40.0-76.0); RED BLOOD CELL COUNT 4.15 mill/uL (4.7-6.1); RED CELL DISTRIBUTION WIDTH 12.4 % (11.6-14.6)
[2021-07-14 07:32] LABS: PLATELET 19 x1000/uL (130-400)
[2021-07-14 08:00] VITALS: BP 145/83
[2021-07-14] MEDS: CYANOCOBALAMIN 1000MCG TABLET PO SCH (08:28)
[2021-07-14] MEDS: PREDNISONE 20MG TABLET PO SCH ×4 (08:28→20:48)
[2021-07-14] MEDS: FERROUS SULFATE 325MG TABLET PO SCH ×2 (08:28→17:35)
[2021-07-14] MEDS: AMLODIPINE 10MG TABLET PO SCH (08:29)
[2021-07-14 12:00] VITALS: BP 127/73
[2021-07-14 16:00] VITALS: BP 125/70
[2021-07-14 20:00] VITALS: BP 130/64
[2021-07-15] VITALS: BP 125/69
[2021-07-15 04:00] VITALS: BP 130/67
[2021-07-15 08:00] VITALS: BP 138/74
[2021-07-15 08:59] LABS: BASOPHILS % 0.2 % (0.0-2.0); HEMATOCRIT. 32.8 % (42.0-52.0); HEMOGLOBIN. 10.8 g/dL (14.0-18.0); MEAN CORPUSCULAR HEMOGLOBIN 28.2 pg (28.0-32.0); MEAN CORPUSCULAR VOLUME 85.7 fL (80.0-94.0); MEAN PLATELET VOLUME 10.9 fl (7.4-10.4); MONOCYTES % 3.7 % (2.0-8.0); NEUTROPHILS % 81.1 % (40.0-76.0); RED BLOOD CELL COUNT 3.83 mill/uL (4.7-6.1); RED CELL DISTRIBUTION WIDTH 12.5 % (11.6-14.6)
[2021-07-15] MEDS: FERROUS SULFATE 325MG TABLET PO SCH ×2 (09:17→18:11)
[2021-07-15] MEDS: AMLODIPINE 10MG TABLET PO SCH (09:17)
[2021-07-15] MEDS: CYANOCOBALAMIN 1000MCG TABLET PO SCH (09:18)
[2021-07-15] MEDS: PREDNISONE 20MG TABLET PO SCH ×4 (09:18→21:47)
[2021-07-15 09:37] LABS: PLATELET 48 x1000/uL (130-400)
[2021-07-15 12:00] VITALS: BP 114/69
[2021-07-15 13:52] LABS: PLATELET ESTIMATE MARKEDLY DECREASED
[2021-07-15 16:00] VITALS: BP 123/67
[2021-07-15 20:00] VITALS: BP 118/67
[2021-07-16] VITALS: BP 124/67
[2021-07-16 04:00] VITALS: BP 148/80
[2021-07-16 08:00] VITALS: BP 130/61
[2021-07-16] MEDS: FERROUS SULFATE 325MG TABLET PO SCH ×2 (08:41→16:50)
[2021-07-16] MEDS: AMLODIPINE 10MG TABLET PO SCH (08:41)
[2021-07-16] MEDS: PREDNISONE 20MG TABLET PO SCH ×4 (08:41→21:05)
[2021-07-16] MEDS: CYANOCOBALAMIN 1000MCG TABLET PO SCH (08:41)
[2021-07-16 09:34] LABS: BASOPHILS % 0.1 % (0.0-2.0); HEMATOCRIT. 32.8 % (42.0-52.0); HEMOGLOBIN. 10.8 g/dL (14.0-18.0); MEAN CORPUSCULAR HEMOGLOBIN 28.2 pg (28.0-32.0); MEAN CORPUSCULAR VOLUME 85.3 fL (80.0-94.0); MEAN PLATELET VOLUME 10.1 fl (7.4-10.4); NEUTROPHILS % 79.9 % (40.0-76.0); PLATELET 61 x1000/uL (130-400); RED BLOOD CELL COUNT 3.84 mill/uL (4.7-6.1); RED CELL DISTRIBUTION WIDTH 12.5 % (11.6-14.6)
[2021-07-16 12:00] VITALS: BP 147/72
[2021-07-16 16:17] VITALS: BP 133/74
[2021-07-16 20:00] VITALS: BP 132/61
[2021-07-17] VITALS: BP 161/82
[2021-07-17 04:00] VITALS: BP 136/76
[2021-07-17 06:22] LABS: HEMATOCRIT. 30.5 % (42.0-52.0); HEMOGLOBIN. 10.3 g/dL (14.0-18.0); LYMPHOCYTES % 14.8 % (20.0-50.0); MEAN CORPUSCULAR HEMOGLOBIN 28.5 pg (28.0-32.0); MEAN CORPUSCULAR VOLUME 84.4 fL (80.0-94.0); MEAN PLATELET VOLUME 9.6 fl (7.4-10.4); MONOCYTES % 5.4 % (2.0-8.0); NEUTROPHILS % 79.8 % (40.0-76.0); PLATELET 63 x1000/uL (130-400); RED BLOOD CELL COUNT 3.62 mill/uL (4.7-6.1); RED CELL DISTRIBUTION WIDTH 12.5 % (11.6-14.6)
[2021-07-17 08:00] VITALS: BP 149/70
[2021-07-17] MEDS: AMLODIPINE 10MG TABLET PO SCH (09:02)
[2021-07-17] MEDS: FERROUS SULFATE 325MG TABLET PO SCH ×2 (09:02→17:37)
[2021-07-17] MEDS: CYANOCOBALAMIN 1000MCG TABLET PO SCH (09:03)
[2021-07-17] MEDS: PREDNISONE 20MG TABLET PO SCH ×4 (09:03→20:32)
[2021-07-17 12:00] VITALS: BP 127/72
[2021-07-17] MEDS ORDERED: PRED10TA MT (12:14)
[2021-07-17] MEDS ORDERED: PANT40TA51 MT (12:14)
[2021-07-17 16:00] VITALS: BP 137/68
[2021-07-17 20:20] VITALS: BP 140/66
[2021-07-18] VITALS: BP 137/78
[2021-07-18 02:47] LABS: CLARITY URINE CLEAR (CLEAR); COLOR URINE YELLOW (YELLOW); KETONES URINE NEGATIVE (NEGATIVE); LEUKOCYTE ESTERASE URINE NEGATIVE (NEGATIVE); NITRITE URINE NEGATIVE (NEGATIVE); OCCULT BLOOD URINE NEGATIVE (NEGATIVE); PROTEIN URINE 2+ (NEGATIVE); SPECIFIC GRAVITY URINE 1.016 (1.005-1.030); UROBILINOGEN URINE 0.2 E.U./dL (0.2-1.0)
[2021-07-18 04:14] VITALS: BP 131/71
[2021-07-18 08:00] VITALS: BP 161/90
[2021-07-18] MEDS: PREDNISONE 20MG TABLET PO SCH ×2 (09:24→13:39)
[2021-07-18] MEDS: CYANOCOBALAMIN 1000MCG TABLET PO SCH (09:24)
[2021-07-18] MEDS: AMLODIPINE 10MG TABLET PO SCH (09:24)
[2021-07-18] MEDS: FERROUS SULFATE 325MG TABLET PO SCH (09:24)
[2021-07-18 11:36] LABS: PHOSPHORUS 2.6 mg/dL (2.5-4.9)
[2021-07-18 12:00] VITALS: BP 146/78
== END 2021-07-18 15:08 | DRG 813 ==
LOC: ER 15:27 → 7WST 21:14 → ENRESERV 21:28 → EDBEDREQ 21:36 → 6WST 07-12 08:14
PROVIDERS: ADMIT Internal Medicine; ATTEND Internal Medicine
PROC: 30233R1 Transfusion of Nonautologous Platelets into Peripheral Vein, Percutaneous Approach (ICD-10-PCS; principal; 2021-07-12)
DX: D69.3 Immune thrombocytopenic purpura (principal); N17.0 Acute kidney failure with tubular necrosis; R78.81 Bacteremia; I25.10 Atherosclerotic heart disease of native coronary artery without angina pectoris; M10.9 Gout, unspecified; N18.9 Chronic kidney disease, unspecified; E66.01 Morbid (severe) obesity due to excess calories; E11.22 Type 2 diabetes mellitus with diabetic chronic kidney disease; I34.0 Nonrheumatic mitral (valve) insufficiency; Z20.822 Contact with and (suspected) exposure to COVID-19; D63.8 Anemia in other chronic diseases classified elsewhere; I13.10 Hypertensive heart and chronic kidney disease without heart failure, with stage 1 through stage 4 chronic kidney disease, or unspecified chronic kidney disease; Z79.84 Long term (current) use of oral hypoglycemic drugs; Z79.899 Other long term (current) drug therapy; Z68.29 Body mass index [BMI] 29.0-29.9, adult; D64.9 Anemia, unspecified; B96.89 Other specified bacterial agents as the cause of diseases classified elsewhere; I44.7 Left bundle-branch block, unspecified
CPT/HCPCS: 36415; 71045; 76770; 80048; 80053; 80061; 80076; 80202; 81003; 82550; 82607; 82728; 82746; 82962; 83036; 83540; 83550; 83605; 83615; 83735; 84100; 84443; 85025; 85049; 86038; 86705; 86709; 86803; 86850; 86900; 87077; 87340; 87389; 93005; 99285; A6261; C1893; J2543; J3370; J7040; J7060; J7512; P9034; U0003; U0005

== ENCOUNTER 2021-07-27 09:23 | Inpatient (IN) | payer MEDICARE, MEDICAID ==
[~2021-07-27] VITALS: Ht 180.3 cm; Wt 112.5 kg
[~2021-07-27 09:23] MED LIST changes: -ALLO300T2 MT; +AMLO10TA80 PO; -ATOR20TA MT; +DOCU-150 PO; -FAMO20TA8 PO; +FERR325T6 PO; -GLIP5TAB12 MT; +HYDR-4001 PO; +HYDR100T26 PO; +MULT-1116 PO; +PANT40TA51 MT; -POLY119P2 MT; +PRED10TA MT; -PRED5TAB48 MT; +SENN-257 PO; -SIMV-46 PO
[2021-07-27 10:27] LABS: CLARITY URINE TURBID (CLEAR); COLOR URINE BLOODY (YELLOW); KETONES URINE NEGATIVE (NEGATIVE); LEUKOCYTE ESTERASE URINE 2+ (NEGATIVE); NITRITE URINE NEGATIVE (NEGATIVE); OCCULT BLOOD URINE 3+ (NEGATIVE); PROTEIN URINE 3+ (NEGATIVE)
[2021-07-27 11:40] LABS: BASOPHILS % 0.4 % (0.0-2.0); CHLORIDE 101 mEq/L (98-107); HEMATOCRIT. 30.7 % (42.0-52.0); HEMOGLOBIN. 10.1 g/dL (14.0-18.0); LYMPHOCYTES % 7.3 % (20.0-50.0); MEAN CORPUSCULAR HEMOGLOBIN 28.1 pg (28.0-32.0); MEAN CORPUSCULAR VOLUME 85.6 fL (80.0-94.0); MONOCYTES % 7.3 % (2.0-8.0); RED BLOOD CELL COUNT 3.59 mill/uL (4.7-6.1); RED CELL DISTRIBUTION WIDTH 12.8 % (11.6-14.6)
[2021-07-27 11:42] LABS: PROTHROMBIN TIME 10.5 sec (9.6-11.0)
[2021-07-27 12:14] LABS: MEAN PLATELET VOLUME 11.1 fl (7.4-10.4)
[2021-07-27 12:15] LABS: PLATELET ESTIMATE MARKEDLY DECREASED
[2021-07-27] MEDS ORDERED: CALCIUM GLUCONATE 100MG/ML 10ML VIAL IV ONE (12:30)
[2021-07-27] MEDS ORDERED: GENTAMICIN 100MG PREMIX 100 ML IV ONE (13:00)
[2021-07-27] MEDS ORDERED: CEFAZOLIN 1000MG PREMIX 50 ML IV ONE (13:00)
[2021-07-27] MEDS ORDERED: GENTAMICIN 100MG PREMIX 50 ML IV ONE (13:15)
[2021-07-27] MEDS ORDERED: DOCUSATE SODIUM 100MG CAPSULE PO PRN (15:15)
[2021-07-27] MEDS ORDERED: ACETAMINOPHEN 325MG TABLET PO PRN ×2 (15:15)
[2021-07-27] MEDS ORDERED: IPRATROPIUM/ALBUTEROL 0.5-3(2.5)MG/3ML NEB HHN PRN (15:15)
[2021-07-27] MEDS ORDERED: ONDANSETRON HCL 4MG/2ML INJ IV PRN (15:15)
[2021-07-27] MEDS ORDERED: LORAZEPAM 0.5MG TABLET PO PRN (15:15)
[2021-07-27] MEDS: SODIUM CHLORIDE 0.9% 1,000 ML IV SCH (15:55)
[2021-07-27] MEDS ORDERED: CEFTRIAXONE 1 G PREMIX 50 ML IV SCH (16:00)
[2021-07-27] MEDS: PREDNISONE 20MG TABLET PO SCH ×3 (16:40→21:05)
[2021-07-27] MEDS: HYDROCODONE/ACETAMINOPHEN 5/325MG TABLET PO PRN (18:51)
[2021-07-27] MEDS ORDERED: DEXTROSE 50% WATER 50ML SYRINGE IV NR (19:30)
[2021-07-27] MEDS ORDERED: SODIUM POLYSTYRENE SULFONATE 15 G/60 ML BOT PO NR (19:30)
[2021-07-27] MEDS ORDERED: INSULIN REGULAR (HUMULIN R) 300UNITS/3ML VIAL IV NR (19:30)
[2021-07-27] MEDS: FAMOTIDINE 20MG TABLET PO SCH (21:05)
[2021-07-28] VITALS (15 sets, daily range): BP systolic 108–171; BP diastolic 63–90
[2021-07-28] MEDS ORDERED: DEXTROSE 50% WATER 50ML SYRINGE IV SCH (00:15)
[2021-07-28] MEDS ORDERED: BLOOD SUGAR DIAGNOSTIC STRIP TEST SCH (00:15)
[2021-07-28] MEDS ORDERED: INSULIN REGULAR (HUMULIN R) 300UNITS/3ML VIAL IV SCH (01:00)
[2021-07-28] MEDS ORDERED: CYAN-50 PO (02:13)
[2021-07-28] MEDS ORDERED: MEGE400O5 PO (02:15)
[2021-07-28] MEDS ORDERED: PRO STAT PO (02:15)
[2021-07-28] MEDS: SODIUM CHLORIDE 0.9% 1,000 ML IV SCH ×3 (03:12→21:21)
[2021-07-28] MEDS: HYDROCODONE/ACETAMINOPHEN 5/325MG TABLET PO PRN (05:46)
[2021-07-28] MEDS: CLONIDINE 0.1MG TABLET PO PRN (05:46)
[2021-07-28 07:02] LABS: HEMATOCRIT. 24.2 % (42.0-52.0); HEMOGLOBIN. 8.3 g/dL (14.0-18.0); MEAN CORPUSCULAR HEMOGLOBIN 28.6 pg (28.0-32.0); MEAN CORPUSCULAR VOLUME 83.8 fL (80.0-94.0); MEAN PLATELET VOLUME 11.5 fl (7.4-10.4); RED BLOOD CELL COUNT 2.89 mill/uL (4.7-6.1); RED CELL DISTRIBUTION WIDTH 12.7 % (11.6-14.6)
[2021-07-28 07:14] LABS: PLATELET 6 x1000/uL (130-400)
[2021-07-28] MEDS: PREDNISONE 20MG TABLET PO SCH ×4 (08:18→21:20)
[2021-07-28 14:12] LABS: PHOSPHORUS 3.9 mg/dL (2.5-4.9)
[2021-07-28 14:38] LABS: PLATELET 8 x1000/uL (130-400)
[2021-07-28 16:23] LABS: PLATELET ESTIMATE MARKEDLY DECREASED
[2021-07-28] MEDS: FAMOTIDINE 20MG TABLET PO SCH (21:21)
[2021-07-29] VITALS (13 sets, daily range): BP systolic 119–158; BP diastolic 32–89
[2021-07-29 06:55] LABS: HEMATOCRIT. 23.5 % (42.0-52.0); HEMOGLOBIN. 7.9 g/dL (14.0-18.0); MEAN CORPUSCULAR HEMOGLOBIN 28.2 pg (28.0-32.0); MEAN CORPUSCULAR VOLUME 84.3 fL (80.0-94.0); MEAN PLATELET VOLUME 11.7 fl (7.4-10.4); RED BLOOD CELL COUNT 2.79 mill/uL (4.7-6.1); RED CELL DISTRIBUTION WIDTH 12.8 % (11.6-14.6)
[2021-07-29 06:59] LABS: PLATELET 9 x1000/uL (130-400)
[2021-07-29] MEDS: SODIUM CHLORIDE 0.9% 1,000 ML IV SCH ×2 (08:06→18:58)
[2021-07-29] MEDS: PREDNISONE 20MG TABLET PO SCH ×4 (08:06→21:21)
[2021-07-29] MEDS: LISINOPRIL 5MG TABLET PO SCH (10:36)
[2021-07-29] MEDS ORDERED: NALOXONE HCL 0.4MG/ML VIAL IV PRN (11:30)
[2021-07-29] MEDS: CEFTRIAXONE 1,000 MG in DEXTROSE 5% WATER 50 ML IV SCH (13:21)
[2021-07-29 16:34] LABS: PLATELET ESTIMATE MARKEDLY DECREASED
[2021-07-29] MEDS: FAMOTIDINE 20MG TABLET PO SCH (21:21)
[2021-07-30] VITALS (12 sets, daily range): BP systolic 102–153; BP diastolic 59–81
[2021-07-30] MEDS: SODIUM CHLORIDE 0.9% 1,000 ML IV SCH ×2 (04:03→13:01)
[2021-07-30 07:18] LABS: HEMATOCRIT. 23.4 % (42.0-52.0); HEMOGLOBIN. 7.9 g/dL (14.0-18.0); LYMPHOCYTES % 9.7 % (20.0-50.0); MEAN CORPUSCULAR HEMOGLOBIN 28.9 pg (28.0-32.0); MEAN CORPUSCULAR VOLUME 85.8 fL (80.0-94.0); MONOCYTES % 4.8 % (2.0-8.0); NEUTROPHILS % 85.5 % (40.0-76.0); RED BLOOD CELL COUNT 2.72 mill/uL (4.7-6.1); RED CELL DISTRIBUTION WIDTH 12.9 % (11.6-14.6)
[2021-07-30 07:27] LABS: PLATELET 33 x1000/uL (130-400)
[2021-07-30] MEDS: PREDNISONE 20MG TABLET PO SCH ×4 (08:41→21:09)
[2021-07-30] MEDS: CEFTRIAXONE 1,000 MG in DEXTROSE 5% WATER 50 ML IV SCH (08:41)
[2021-07-30] MEDS: LISINOPRIL 5MG TABLET PO SCH (08:43)
[2021-07-30] MEDS: FAMOTIDINE 20MG TABLET PO SCH (21:09)
[2021-07-31] VITALS (9 sets, daily range): BP systolic 135–171; BP diastolic 68–92
[2021-07-31] MEDS: SODIUM CHLORIDE 0.9% 1,000 ML IV SCH ×2 (00:43→10:00)
[2021-07-31] MEDS: CLONIDINE 0.1MG TABLET PO PRN ×3 (04:26→21:00)
[2021-07-31 08:21] LABS: BASOPHILS % 0.2 % (0.0-2.0); HEMATOCRIT. 22.5 % (42.0-52.0); HEMOGLOBIN. 7.6 g/dL (14.0-18.0); LYMPHOCYTES % 10.8 % (20.0-50.0); MEAN CORPUSCULAR HEMOGLOBIN 28.4 pg (28.0-32.0); MEAN CORPUSCULAR VOLUME 84.5 fL (80.0-94.0); MONOCYTES % 4.7 % (2.0-8.0); NEUTROPHILS % 84.3 % (40.0-76.0); PLATELET 55 x1000/uL (130-400); RED BLOOD CELL COUNT 2.66 mill/uL (4.7-6.1); RED CELL DISTRIBUTION WIDTH 12.5 % (11.6-14.6)
[2021-07-31] MEDS: PREDNISONE 20MG TABLET PO SCH ×4 (08:23→21:00)
[2021-07-31] MEDS: CEFTRIAXONE 1,000 MG in DEXTROSE 5% WATER 50 ML IV SCH (08:23)
[2021-07-31] MEDS: LISINOPRIL 5MG TABLET PO SCH (08:24)
[2021-07-31] MEDS ORDERED: PRED10TA MT (10:09)
[2021-07-31] MEDS: FAMOTIDINE 20MG TABLET PO SCH (21:00)
[2021-08-01 00:17] VITALS: BP 170/78
[2021-08-01 04:00] VITALS: BP 158/76
[2021-08-01 08:22] VITALS: BP 168/91
[2021-08-01] MEDS: PREDNISONE 20MG TABLET PO SCH ×3 (08:31→16:57)
[2021-08-01] MEDS: CEFTRIAXONE 1,000 MG in DEXTROSE 5% WATER 50 ML IV SCH (08:31)
[2021-08-01] MEDS: LISINOPRIL 5MG TABLET PO SCH (08:31)
[2021-08-01 13:12] VITALS: BP 156/72
[2021-08-01 15:48] VITALS: BP 140/74
== END 2021-08-01 17:00 | DRG 813 ==
LOC: ER 09:39 → MICUSO 14:25 → 3WST 22:17 → 6WST 07-31 11:24
PROVIDERS: ADMIT Internal Medicine; ATTEND Internal Medicine
PROC: 30233R1 Transfusion of Nonautologous Platelets into Peripheral Vein, Percutaneous Approach (ICD-10-PCS; principal; 2021-07-27)
PROC: 30233K1 Transfusion of Nonautologous Frozen Plasma into Peripheral Vein, Percutaneous Approach (ICD-10-PCS; 2021-07-29)
DX: D69.3 Immune thrombocytopenic purpura (principal); N17.0 Acute kidney failure with tubular necrosis; N39.0 Urinary tract infection, site not specified; E87.1 Hypo-osmolality and hyponatremia; D64.9 Anemia, unspecified; B96.89 Other specified bacterial agents as the cause of diseases classified elsewhere; E11.22 Type 2 diabetes mellitus with diabetic chronic kidney disease; E66.01 Morbid (severe) obesity due to excess calories; E87.5 Hyperkalemia; I51.7 Cardiomegaly; M10.9 Gout, unspecified; Z20.822 Contact with and (suspected) exposure to COVID-19; N18.9 Chronic kidney disease, unspecified; I12.9 Hypertensive chronic kidney disease with stage 1 through stage 4 chronic kidney disease, or unspecified chronic kidney disease; R31.0 Gross hematuria; I34.0 Nonrheumatic mitral (valve) insufficiency; I44.7 Left bundle-branch block, unspecified; Z86.2 Personal history of diseases of the blood and blood-forming organs and certain disorders involving the immune mechanism; Z79.84 Long term (current) use of oral hypoglycemic drugs; Z79.891 Long term (current) use of opiate analgesic; Z79.899 Other long term (current) drug therapy
CPT/HCPCS: 36415; 76770; 80048; 80053; 81003; 82550; 82570; 82962; 83735; 84100; 84132; 84156; 85025; 86850; 86900; 86927; 87077; 87186; 87426; 97162; 99291; J0610; J0690; J0696; J1580; J1815; J7060; J7512; P9017; P9034; A4315

== ENCOUNTER 2021-08-25 14:39 | Inpatient (IN) | payer MEDICARE, MEDICAID ==
[~2021-08-25] VITALS: Ht 180.3 cm; Wt 104.8 kg
[~2021-08-25 14:39] MED LIST changes: +CYAN-50 PO; +MEGE400O5 PO; +PRO STAT PO
[2021-08-25 16:57] LABS: BASOPHILS % 0.5 % (0.0-2.0); EOSINOPHILS % 0.6 % (0.0-5.0); HEMATOCRIT. 31.1 % (42.0-52.0); HEMOGLOBIN. 10.2 g/dL (14.0-18.0); LYMPHOCYTES % 12.1 % (20.0-50.0); MEAN CORPUSCULAR HEMOGLOBIN 28.5 pg (28.0-32.0); MEAN CORPUSCULAR VOLUME 86.5 fL (80.0-94.0); MEAN PLATELET VOLUME 10.8 fl (7.4-10.4); MONOCYTES % 3.8 % (2.0-8.0); RED BLOOD CELL COUNT 3.59 mill/uL (4.7-6.1); RED CELL DISTRIBUTION WIDTH 14.3 % (11.6-14.6)
[2021-08-25 17:06] LABS: PROTHROMBIN TIME 10.9 sec (9.6-11.0)
[2021-08-25 17:15] LABS: CHLORIDE 106 mEq/L (98-107)
[2021-08-25] MEDS ORDERED: DEXTROSE 50% WATER 50ML SYRINGE IV ONE (18:45)
[2021-08-25] MEDS ORDERED: INSULIN REGULAR (HUMULIN R) 300UNITS/3ML VIAL IV ONE (18:45)
[2021-08-25 23:44] VITALS: BP 148/78
[2021-08-26] VITALS (10 sets, daily range): BP systolic 131–164; BP diastolic 65–89
[2021-08-26] MEDS ORDERED: HYDROCODONE/ACETAMINOPHEN 5/325MG TABLET PO PRN (00:45)
[2021-08-26] MEDS ORDERED: ACETAMINOPHEN 325MG TABLET PO PRN (00:45)
[2021-08-26] MEDS ORDERED: DEXTROSE 50% WATER 50ML SYRINGE IV PRN (00:45)
[2021-08-26] MEDS: METHYLPREDNISOLONE SOD SUCC 40 MG/ML VIAL IV SCH ×4 (01:07→21:49)
[2021-08-26] MEDS: HYDRALAZINE HCL 100MG TABLET PO SCH ×3 (05:55→21:50)
[2021-08-26] MEDS: BLOOD SUGAR DIAGNOSTIC STRIP TEST SCH ×4 (05:55→20:00)
[2021-08-26] MEDS: INSULIN LISPRO 100 UNITS/ML SUBCUT SCH ×4 (06:30→20:23)
[2021-08-26 07:04] LABS: HEMATOCRIT. 31.1 % (42.0-52.0); HEMOGLOBIN. 10.2 g/dL (14.0-18.0); MEAN CORPUSCULAR HEMOGLOBIN 28.1 pg (28.0-32.0); MEAN CORPUSCULAR VOLUME 85.9 fL (80.0-94.0); MEAN PLATELET VOLUME 10.9 fl (7.4-10.4); RED BLOOD CELL COUNT 3.62 mill/uL (4.7-6.1); RED CELL DISTRIBUTION WIDTH 14.3 % (11.6-14.6)
[2021-08-26 07:18] LABS: CHLORIDE 108 mEq/L (98-107)
[2021-08-26 08:07] LABS: PLATELET 13 x1000/uL (130-400)
[2021-08-26] MEDS: AMLODIPINE 10MG TABLET PO SCH (08:56)
[2021-08-26] MEDS ORDERED: SODIUM POLYSTYRENE SULFONATE 15 G/60 ML BOT PO NR (09:30)
[2021-08-26] MEDS ORDERED: INSULIN GLARGINE UD 100 UNITS/ML SYR SUBCUT SCH (10:00)
[2021-08-26 13:46] LABS: CLARITY URINE CLOUDY (CLEAR); COLOR URINE YELLOW (YELLOW); KETONES URINE NEGATIVE (NEGATIVE); LEUKOCYTE ESTERASE URINE 1+ (NEGATIVE); NITRITE URINE NEGATIVE (NEGATIVE); OCCULT BLOOD URINE 3+ (NEGATIVE); PROTEIN URINE 3+ (NEGATIVE); SPECIFIC GRAVITY URINE 1.016 (1.005-1.030); UROBILINOGEN URINE 0.2 E.U./dL (0.2-1.0)
[2021-08-26] MEDS ORDERED: CEFTRIAXONE 1 G PREMIX 50 ML IV SCH (15:45)
[2021-08-26] MEDS ORDERED: CEFTRIAXONE 1,000 MG in DEXTROSE 5% WATER 50 ML IV SCH (17:00)
[2021-08-26 17:02] LABS: PLATELET ESTIMATE MARKEDLY DECREASED
[2021-08-26] MEDS: INSULIN GLARGINE UD 100 UNITS/ML SYR SUBCUT SCH (21:51)
[2021-08-27] VITALS: BP 137/75
[2021-08-27 02:36] LABS: BASOPHILS % 0.1 % (0.0-2.0); HEMATOCRIT. 33.1 % (42.0-52.0); HEMOGLOBIN. 10.8 g/dL (14.0-18.0); LYMPHOCYTES % 9.7 % (20.0-50.0); MEAN CORPUSCULAR HEMOGLOBIN 28.2 pg (28.0-32.0); MONOCYTES % 3.9 % (2.0-8.0); NEUTROPHILS % 86.3 % (40.0-76.0); RED BLOOD CELL COUNT 3.85 mill/uL (4.7-6.1)
[2021-08-27 02:44] LABS: PLATELET 23 x1000/uL (130-400)
[2021-08-27 04:00] VITALS: BP 122/70
[2021-08-27] MEDS: BLOOD SUGAR DIAGNOSTIC STRIP TEST SCH ×4 (05:43→20:40)
[2021-08-27] MEDS: HYDRALAZINE HCL 100MG TABLET PO SCH ×3 (05:44→21:52)
[2021-08-27] MEDS: METHYLPREDNISOLONE SOD SUCC 40 MG/ML VIAL IV SCH ×3 (05:44→21:52)
[2021-08-27] MEDS: INSULIN LISPRO 100 UNITS/ML SUBCUT SCH ×4 (06:32→21:52)
[2021-08-27 08:00] VITALS: BP 142/76
[2021-08-27] MEDS: AMLODIPINE 10MG TABLET PO SCH (08:50)
[2021-08-27] MEDS: INSULIN GLARGINE UD 100 UNITS/ML SYR SUBCUT SCH (10:53)
[2021-08-27] MEDS ORDERED: INSU100I28 SQ (11:57)
[2021-08-27 12:00] VITALS: BP 152/48
[2021-08-27 13:14] LABS: PLATELET 12 x1000/uL (130-400)
[2021-08-27] MEDS: CEFTRIAXONE 2,000 MG in DEXTROSE 5% WATER 50 ML IV SCH (17:12)
[2021-08-27 20:00] VITALS: BP 144/70
[2021-08-27] MEDS ORDERED: INSULIN GLARGINE UD 100 UNITS/ML SYR SUBCUT SCH (22:00)
[2021-08-27] MEDS ORDERED: NALOXONE HCL 0.4MG/ML VIAL IV PRN (22:30)
[2021-08-28] VITALS (7 sets, daily range): BP systolic 126–164; BP diastolic 69–114
[2021-08-28] MEDS: HYDRALAZINE HCL 100MG TABLET PO SCH ×3 (06:00→21:57)
[2021-08-28] MEDS: BLOOD SUGAR DIAGNOSTIC STRIP TEST SCH ×4 (06:00→21:56)
[2021-08-28] MEDS: METHYLPREDNISOLONE SOD SUCC 40 MG/ML VIAL IV SCH ×3 (06:00→21:56)
[2021-08-28] MEDS: INSULIN LISPRO 100 UNITS/ML SUBCUT SCH ×4 (06:46→21:59)
[2021-08-28] MEDS: AMLODIPINE 10MG TABLET PO SCH (08:37)
[2021-08-28] MEDS ORDERED: LEVO750T46 MT (16:10)
[2021-08-28] MEDS: CEFTRIAXONE 2,000 MG in DEXTROSE 5% WATER 50 ML IV SCH (16:46)
[2021-08-28] MEDS: INSULIN GLARGINE UD 100 UNITS/ML SYR SUBCUT SCH (21:59)
[2021-08-29] VITALS: BP 179/99
[2021-08-29 04:00] VITALS: BP 159/78
[2021-08-29] MEDS: BLOOD SUGAR DIAGNOSTIC STRIP TEST SCH (05:49)
[2021-08-29] MEDS: METHYLPREDNISOLONE SOD SUCC 40 MG/ML VIAL IV SCH (05:53)
[2021-08-29] MEDS: HYDRALAZINE HCL 100MG TABLET PO SCH (05:55)
[2021-08-29] MEDS: INSULIN LISPRO 100 UNITS/ML SUBCUT SCH (05:56)
[2021-08-29 08:00] VITALS: BP 133/77
[2021-08-29] MEDS: AMLODIPINE 10MG TABLET PO SCH (08:28)
[2021-08-29] MEDS: INSULIN GLARGINE UD 100 UNITS/ML SYR SUBCUT SCH (09:01)
== END 2021-08-29 09:47 | disposition home health service (06) | DRG 813 ==
LOC: ER 14:39 → 7EST 18:37 → ENRESERV 21:10 → CANRESERV 21:10 → ENRESERV 22:05
PROVIDERS: ADMIT Internal Medicine; ATTEND Internal Medicine
PROC: 30233R1 Transfusion of Nonautologous Platelets into Peripheral Vein, Percutaneous Approach (ICD-10-PCS; principal; 2021-08-25)
DX: D69.3 Immune thrombocytopenic purpura (principal); G93.41 Metabolic encephalopathy; N39.0 Urinary tract infection, site not specified; E44.0 Moderate protein-calorie malnutrition; N17.9 Acute kidney failure, unspecified; G90.8 Other disorders of autonomic nervous system; D64.9 Anemia, unspecified; E11.22 Type 2 diabetes mellitus with diabetic chronic kidney disease; E66.01 Morbid (severe) obesity due to excess calories; E87.5 Hyperkalemia; E87.8 Other disorders of electrolyte and fluid balance, not elsewhere classified; I12.9 Hypertensive chronic kidney disease with stage 1 through stage 4 chronic kidney disease, or unspecified chronic kidney disease; I25.10 Atherosclerotic heart disease of native coronary artery without angina pectoris; N18.9 Chronic kidney disease, unspecified; M10.9 Gout, unspecified; Z86.2 Personal history of diseases of the blood and blood-forming organs and certain disorders involving the immune mechanism; Z86.73 Personal history of transient ischemic attack (TIA), and cerebral infarction without residual deficits; Z68.32 Body mass index [BMI] 32.0-32.9, adult
CPT/HCPCS: 36415; 70551; 80048; 80053; 81003; 82962; 83036; 85025; 85049; 86850; 86900; 87077; 87186; 92610; 93005; 97162; 97166; 99285; C1893; J0696; J1815; J2920; J7060; P9034; P9036

== ENCOUNTER 2021-08-31 18:11 | Inpatient (IN) | payer MEDICARE, OTHER ==
[~2021-08-31] VITALS: Ht 175.3 cm; Wt 112.1 kg
[~2021-08-31 18:11] MED LIST changes: +INSU100I28 SQ; +LEVO750T46 MT; -PRED10TA MT
[2021-08-31 21:19] LABS: BASOPHILS % 0.2 % (0.0-2.0); EOSINOPHILS % 2.9 % (0.0-5.0); HEMATOCRIT. 28.6 % (42.0-52.0); HEMOGLOBIN. 9.7 g/dL (14.0-18.0); LYMPHOCYTES % 14.1 % (20.0-50.0); MEAN CORPUSCULAR HEMOGLOBIN 28.4 pg (28.0-32.0); MEAN CORPUSCULAR VOLUME 83.7 fL (80.0-94.0); MEAN PLATELET VOLUME 11.2 fl (7.4-10.4); MONOCYTES % 4.2 % (2.0-8.0); NEUTROPHILS % 78.6 % (40.0-76.0); RED BLOOD CELL COUNT 3.41 mill/uL (4.7-6.1); RED CELL DISTRIBUTION WIDTH 14.1 % (11.6-14.6)
[2021-08-31 21:38] LABS: PLATELET 10 x1000/uL (130-400)
[2021-09-01] MEDS ORDERED: DEXTROSE 50% WATER 50ML SYRINGE IV PRN (09:15)
[2021-09-01] MEDS ORDERED: ONDANSETRON HCL 4MG/2ML INJ IV PRN (09:15)
[2021-09-01] MEDS ORDERED: ACETAMINOPHEN 325MG TABLET PO PRN (09:15)
[2021-09-01] MEDS: METHYLPREDNISOLONE SOD SUCC 40 MG/ML VIAL IV SCH ×2 (11:02→17:23)
[2021-09-01] MEDS: BLOOD SUGAR DIAGNOSTIC STRIP TEST SCH ×4 (12:00→21:00)
[2021-09-01 16:01] VITALS: BP 170/110
[2021-09-01] MEDS: AMLODIPINE 10MG TABLET PO SCH (17:22)
[2021-09-01] MEDS: INSULIN LISPRO 100 UNITS/ML SUBCUT SCH ×2 (17:30→21:53)
[2021-09-01 20:00] VITALS: BP 165/84
[2021-09-01 21:34] LABS: CLARITY URINE CLOUDY (CLEAR); COLOR URINE YELLOW (YELLOW); KETONES URINE NEGATIVE (NEGATIVE); LEUKOCYTE ESTERASE URINE NEGATIVE (NEGATIVE); NITRITE URINE NEGATIVE (NEGATIVE); OCCULT BLOOD URINE 3+ (NEGATIVE); PROTEIN URINE 3+ (NEGATIVE); SPECIFIC GRAVITY URINE 1.019 (1.005-1.030); UROBILINOGEN URINE 0.2 E.U./dL (0.2-1.0)
[2021-09-02] VITALS (9 sets, daily range): BP systolic 135–189; BP diastolic 73–100
[2021-09-02] MEDS: METHYLPREDNISOLONE SOD SUCC 40 MG/ML VIAL IV SCH ×3 (02:48→17:30)
[2021-09-02] MEDS: INSULIN LISPRO 100 UNITS/ML SUBCUT SCH ×4 (06:24→21:17)
[2021-09-02] MEDS: BLOOD SUGAR DIAGNOSTIC STRIP TEST SCH ×4 (06:24→21:07)
[2021-09-02 08:53] LABS: HEMOGLOBIN. 9.1 g/dL (14.0-18.0); MEAN CORPUSCULAR HEMOGLOBIN 28.4 pg (28.0-32.0); MEAN CORPUSCULAR VOLUME 84.6 fL (80.0-94.0); MEAN PLATELET VOLUME 10.9 fl (7.4-10.4); RED BLOOD CELL COUNT 3.19 mill/uL (4.7-6.1); RED CELL DISTRIBUTION WIDTH 13.6 % (11.6-14.6)
[2021-09-02 09:01] LABS: PLATELET 9 x1000/uL (130-400)
[2021-09-02] MEDS: AMLODIPINE 10MG TABLET PO SCH (09:11)
[2021-09-02] MEDS: INSULIN GLARGINE UD 100 UNITS/ML SYR SUBCUT SCH ×2 (09:12→21:17)
[2021-09-02 21:52] LABS: PLATELET ESTIMATE MARKEDLY DECREASED
[2021-09-02] MEDS ORDERED: SODIUM CHLORIDE 0.9% 1,000 ML IV SCH (22:30)
[2021-09-03] VITALS: BP 144/75
[2021-09-03] MEDS: METHYLPREDNISOLONE SOD SUCC 40 MG/ML VIAL IV SCH ×2 (01:10→10:28)
[2021-09-03 04:00] VITALS: BP 147/84
[2021-09-03] MEDS: BLOOD SUGAR DIAGNOSTIC STRIP TEST SCH ×3 (06:08→16:40)
[2021-09-03] MEDS: INSULIN LISPRO 100 UNITS/ML SUBCUT SCH ×3 (06:14→17:54)
[2021-09-03 08:00] VITALS: BP 167/86
[2021-09-03 10:05] LABS: BASOPHILS % 0.1 % (0.0-2.0); HEMATOCRIT. 27.2 % (42.0-52.0); HEMOGLOBIN. 8.9 g/dL (14.0-18.0); LYMPHOCYTES % 8.4 % (20.0-50.0); MEAN CORPUSCULAR HEMOGLOBIN 27.9 pg (28.0-32.0); MEAN CORPUSCULAR VOLUME 85.7 fL (80.0-94.0); MONOCYTES % 2.6 % (2.0-8.0); NEUTROPHILS % 88.9 % (40.0-76.0); RED BLOOD CELL COUNT 3.17 mill/uL (4.7-6.1); RED CELL DISTRIBUTION WIDTH 14.1 % (11.6-14.6)
[2021-09-03 10:09] LABS: PLATELET 12 x1000/uL (130-400)
[2021-09-03] MEDS: INSULIN GLARGINE UD 100 UNITS/ML SYR SUBCUT SCH (10:28)
[2021-09-03] MEDS: AMLODIPINE 10MG TABLET PO SCH (10:29)
[2021-09-03 12:00] VITALS: BP 128/77
[2021-09-03] MEDS ORDERED: SODIUM POLYSTYRENE SULFONATE 15 G/60 ML BOT PO SCH (12:00)
[2021-09-03] MEDS ORDERED: INSULIN GLARGINE UD 100 UNITS/ML SYR SUBCUT SCH (22:00)
== END 2021-09-03 18:20 | disposition home health service (06) | DRG 813 ==
LOC: ER 18:11 → MICUSO 22:17 → EDBEDREQ 22:28 → EDBEDREQTM 22:28 → 6EST 09-01 11:44 → MICUSO 09-01 12:20 → 7EST 09-01 15:12
PROVIDERS: ADMIT Internal Medicine; ATTEND Internal Medicine
PROC: 30233R1 Transfusion of Nonautologous Platelets into Peripheral Vein, Percutaneous Approach (ICD-10-PCS; principal; 2021-09-01)
DX: D69.3 Immune thrombocytopenic purpura (principal); E87.1 Hypo-osmolality and hyponatremia; N17.9 Acute kidney failure, unspecified; R04.0 Epistaxis; D64.9 Anemia, unspecified; E66.9 Obesity, unspecified; I12.9 Hypertensive chronic kidney disease with stage 1 through stage 4 chronic kidney disease, or unspecified chronic kidney disease; E11.22 Type 2 diabetes mellitus with diabetic chronic kidney disease; E87.5 Hyperkalemia; N18.9 Chronic kidney disease, unspecified; Z87.440 Personal history of urinary (tract) infections; Z71.3 Dietary counseling and surveillance; Z68.36 Body mass index [BMI] 36.0-36.9, adult
CPT/HCPCS: 36415; 80048; 81003; 82962; 85025; 86850; 86900; 97162; 99285; J1815; J2920; J7030; P9034

== ENCOUNTER 2025-06-12 12:09 | Inpatient (IN) | payer MEDICARE, OTHER ==
[~2025-06-12] VITALS: Ht 172.7 cm; Wt 88.5 kg
[~2025-06-12 12:09] MED LIST changes: +ASPI-1406 MT; -DOCU-150 PO; +DOCU-422 PO; +ERGO2000 PO; +FOLI-43 PO; -HYDR100T26 PO; -INSU100I28 SQ; -LEVO750T46 MT; -MEGE400O5 PO; +MEMA10TA20 PO; -PANT40TA51 MT; -SENN-257 PO; +SENN-362 PO
[2025-06-12 13:33] LABS: BASOPHILS % 0.6 % (0.0-2.0); EOSINOPHILS % 2.9 % (0.0-5.0); HEMATOCRIT. 24.1 % (42.0-52.0); HEMOGLOBIN. 8.1 g/dL (14.0-18.0); LYMPHOCYTES % 14.2 % (20.0-50.0); MEAN PLATELET VOLUME 8.5 fl (7.4-10.4); MONOCYTES % 10.1 % (2.0-8.0); NEUTROPHILS % 72.2 % (40.0-76.0); PLATELET 321 x1000/uL (130-400); RED BLOOD CELL COUNT 2.76 mill/uL (4.7-6.1); RED CELL DISTRIBUTION WIDTH 16.4 % (11.6-14.6)
[2025-06-12 13:44] LABS: INR 1.0
[2025-06-12 13:47] LABS: UREA NITROGEN BLOOD 62 mg/dL (9-23)
[2025-06-12 13:48] LABS: ASPARTATE AMINOTRANSFERASE 15 IU/L (<34)
[2025-06-12 13:49] LABS: BILIRUBIN DIRECT < 0.1 mg/dL (<=3.0); BILIRUBIN TOTAL 0.2 mg/dL (0.1-1.0); PROTEIN TOTAL 6.8 g/dL (6.0-8.3)
[2025-06-12 14:14] LABS: CREATININE 3.4 mg/dL (0.6-1.3)
[2025-06-12] MEDS: CALCIUM CHLORIDE 1GM/10ML SYR IV SCH (15:25)
[2025-06-12] MEDS: DEXTROSE 50% WATER 50ML SYRINGE IV SCH (15:27)
[2025-06-12] MEDS: SODIUM ZIRCONIUM CYCLOSILICATE 10GM/PACKET PO SCH (15:28)
[2025-06-12] MEDS: SODIUM BICARBONATE 8.4% 50MEQ/50ML SYR IV SCH (15:28)
[2025-06-12] MEDS: FUROSEMIDE 100MG/10ML VIAL IV SCH (15:28)
[2025-06-12] MEDS: INSULIN REGULAR (HUMULIN R) 1000UNITS/10ML VIAL IV SCH (15:30)
[2025-06-12] MEDS: ALBUTEROL (0.083%) 2.5MG/3ML NEB HHN SCH (15:50)
[2025-06-12 15:51] VITALS: PULSE 88; RESP 14; O2SAT 100
[2025-06-12 18:52] LABS: CLARITY URINE CLEAR (CLEAR); COLOR URINE YELLOW (YELLOW); GLUCOSE URINE NEGATIVE (NEGATIVE); KETONES URINE NEGATIVE (NEGATIVE); LEUKOCYTE ESTERASE URINE NEGATIVE (NEGATIVE); NITRITE URINE NEGATIVE (NEGATIVE); OCCULT BLOOD URINE NEGATIVE (NEGATIVE); PH URINE 7.0 (4.5-8.0); PROTEIN URINE 1+ (NEGATIVE); SPECIFIC GRAVITY URINE 1.009 (1.005-1.030); UROBILINOGEN URINE 0.2 E.U./dL (0.2-1.0)
[2025-06-12 18:56] LABS: BACTERIA URINE NONE SEEN; RBC URINE NONE SEEN /hpf (0-2); RENAL EPITHELIAL CELLS URINE NONE SEEN /lpf; SQUAMOUS EPITHELIAL CELL URINE FEW /lpf (RARE/1+); WBC URINE NONE SEEN /hpf (0-2)
[2025-06-12 20:00] VITALS: BP 159/72; PULSE 91; RESP 18; TEMP 37.1; O2SAT 99
[2025-06-12 21:19] VITALS: BP 159/72; PULSE 91; RESP 18; TEMP 37.0852
[2025-06-12] MEDS ORDERED: CLONIDINE 0.1MG TABLET PO PRN (21:45)
[2025-06-12] MEDS ORDERED: ACETAMINOPHEN 325MG TABLET PO PRN ×2 (21:45)
[2025-06-12] MEDS ORDERED: DOCUSATE SODIUM 100MG CAPSULE PO PRN (21:45)
[2025-06-12] MEDS ORDERED: IPRATROPIUM/ALBUTEROL 0.5-3(2.5)MG/3ML NEB HHN PRN (21:45)
[2025-06-12] MEDS ORDERED: GUAIFENESIN 200MG/10ML SUGAR FREE UDC PO PRN (21:45)
[2025-06-12] MEDS ORDERED: HYDROCODONE/ACETAMINOPHEN 5/325MG TABLET PO PRN (21:45)
[2025-06-12] MEDS ORDERED: ONDANSETRON HCL 4MG/2ML INJ IV PRN (21:45)
[2025-06-12] MEDS ORDERED: MAGNESIUM/ALUMINUM HYDROXIDE/SIMETHICONE 30ML UDC PO PRN (21:45)
[2025-06-12] MEDS ORDERED: ACETAMINOPHEN 650MG SUPP PR PRN ×2 (21:45)
[2025-06-12] MEDS ORDERED: DIPHENHYDRAMINE 50MG/ML VIAL IV PRN (21:45)
[2025-06-12] MEDS ORDERED: LORAZEPAM 0.5MG TABLET PO PRN (21:45)
[2025-06-12] MEDS ORDERED: NALOXONE HCL 0.4MG/ML VIAL IV PRN (22:15)
[2025-06-12] MEDS: AMLODIPINE 10MG TABLET PO SCH (22:45)
[2025-06-12] MEDS ORDERED: DEXTROSE 50% WATER 50ML SYRINGE IV PRN (22:45)
[2025-06-13] VITALS: BP 153/74; PULSE 91; RESP 18; TEMP 36.2; O2SAT 99
[2025-06-13 04:00] VITALS: BP 144/79; PULSE 80; RESP 18; TEMP 36.4; O2SAT 99
[2025-06-13 06:06] LABS: CREATININE 3.2 mg/dL (0.6-1.3); TRIGLYCERIDE 56.0 mg/dL (0-150); UREA NITROGEN BLOOD 61.0 mg/dL (9-23)
[2025-06-13 06:07] LABS: LDL CHOLESTEROL 69.0 mg/dL (5-100)
[2025-06-13] MEDS: BLOOD SUGAR DIAGNOSTIC STRIP TEST SCH (06:14)
[2025-06-13 06:32] LABS: BASOPHILS % 0.7 % (0.0-2.0); EOSINOPHILS % 3.1 % (0.0-5.0); HEMATOCRIT. 26.6 % (42.0-52.0); HEMOGLOBIN. 9.0 g/dL (14.0-18.0); LYMPHOCYTES % 17.4 % (20.0-50.0); MEAN PLATELET VOLUME 8.9 fl (7.4-10.4); MONOCYTES % 10.7 % (2.0-8.0); NEUTROPHILS % 68.1 % (40.0-76.0); PLATELET 341 x1000/uL (130-400); RED BLOOD CELL COUNT 3.15 mill/uL (4.7-6.1); RED CELL DISTRIBUTION WIDTH 16.2 % (11.6-14.6)
[2025-06-13] MEDS: INSULIN LISPRO 100 UNITS/ML SUBCUT SCH (06:41)
[2025-06-13 08:00] VITALS: BP 107/53; PULSE 73; RESP 18; TEMP 36.6; O2SAT 97
[2025-06-13] MEDS: ASPIRIN 81MG EC TABLET PO SCH (09:57)
[2025-06-13] MEDS: ENOXAPARIN 30MG/0.3ML SYR SUBCUT SCH (09:58)
[2025-06-13 12:00] VITALS: BP 147/57; PULSE 74; RESP 18; TEMP 36.6; O2SAT 99
[2025-06-13 16:30] VITALS: BP 125/60; PULSE 70; RESP 18; TEMP 36.7; O2SAT 98
[2025-06-13 20:00] VITALS: BP 122/53; PULSE 73; RESP 20; TEMP 37.1; O2SAT 99
[2025-06-14] VITALS: BP 131/84; PULSE 77; RESP 19; TEMP 36.9; O2SAT 100
[2025-06-14] MEDS: SODIUM CHLORIDE 0.45% 1,000 ML IV SCH (00:28)
[2025-06-14] MEDS: MEMANTINE HCL 10MG TABLET PO SCH (00:28)
[2025-06-14 04:00] VITALS: BP 111/46; PULSE 70; RESP 18; TEMP 36.8; O2SAT 100
[2025-06-14 07:23] LABS: BASOPHILS % 0.9 % (0.0-2.0); EOSINOPHILS % 5.7 % (0.0-5.0); HEMATOCRIT. 22.7 % (42.0-52.0); HEMOGLOBIN. 7.7 g/dL (14.0-18.0); LYMPHOCYTES % 29.9 % (20.0-50.0); MEAN PLATELET VOLUME 8.7 fl (7.4-10.4); MONOCYTES % 10.8 % (2.0-8.0); NEUTROPHILS % 52.7 % (40.0-76.0); PLATELET 282 x1000/uL (130-400); RED BLOOD CELL COUNT 2.66 mill/uL (4.7-6.1); RED CELL DISTRIBUTION WIDTH 16.6 % (11.6-14.6)
[2025-06-14 07:27] LABS: CREATININE 2.8 mg/dL (0.6-1.3)
[2025-06-14 07:28] LABS: UREA NITROGEN BLOOD 59.0 mg/dL (9-23)
[2025-06-14 08:00] VITALS: BP 121/74; PULSE 64; RESP 18; TEMP 37; O2SAT 100
[2025-06-14] MEDS: FOLIC ACID 1MG TABLET PO SCH (08:59)
[2025-06-14] MEDS: FERROUS SULFATE 325MG TABLET PO SCH (09:00)
[2025-06-14] MEDS: CYANOCOBALAMIN 1000MCG TABLET PO SCH (09:00)
[2025-06-14 12:00] VITALS: BP 121/52; PULSE 67; RESP 18; TEMP 36.4; O2SAT 99
[2025-06-14 16:00] VITALS: BP 130/63; RESP 17; TEMP 36.7; O2SAT 100
[2025-06-14] MEDS: SODIUM ZIRCONIUM CYCLOSILICATE 10GM/PACKET PO SCH (16:28)
[2025-06-14 20:00] VITALS: BP 135/56; PULSE 74; RESP 16; TEMP 36.9; O2SAT 92
[2025-06-14] MEDS: SENNOSIDES 8.6MG TABLET PO SCH (20:59)
[2025-06-15] VITALS: BP 132/58; PULSE 67; RESP 18; TEMP 36.6; O2SAT 99
[2025-06-15 04:00] VITALS: BP 160/74; PULSE 89; RESP 18; TEMP 37; O2SAT 98
[2025-06-15 08:00] VITALS: BP 147/70; PULSE 74; RESP 18; TEMP 35.9; O2SAT 100
[2025-06-15] MEDS: SODIUM ZIRCONIUM CYCLOSILICATE 10GM/PACKET PO SCH (09:34)
[2025-06-15 11:20] LABS: BASOPHILS % 1.0 % (0.0-2.0); EOSINOPHILS % 5.7 % (0.0-5.0); HEMATOCRIT. 24.5 % (42.0-52.0); HEMOGLOBIN. 8.1 g/dL (14.0-18.0); LYMPHOCYTES % 29.6 % (20.0-50.0); MEAN PLATELET VOLUME 8.7 fl (7.4-10.4); MONOCYTES % 8.2 % (2.0-8.0); NEUTROPHILS % 55.5 % (40.0-76.0); PLATELET 335 x1000/uL (130-400); RED BLOOD CELL COUNT 2.82 mill/uL (4.7-6.1); RED CELL DISTRIBUTION WIDTH 16.4 % (11.6-14.6)
[2025-06-15 11:29] LABS: CREATININE 2.6 mg/dL (0.6-1.3); UREA NITROGEN BLOOD 62.0 mg/dL (9-23)
[2025-06-15 12:00] VITALS: BP 135/65; PULSE 68; RESP 16; TEMP 36.2; O2SAT 100
[2025-06-15] MEDS ORDERED: SODIUM ZIRCONIUM CYCLOSILICATE 10GM/PACKET PO ONE (13:30)
[2025-06-15 16:00] VITALS: BP 138/60; PULSE 64; RESP 17; TEMP 36.2; O2SAT 99
[2025-06-15 20:00] VITALS: BP 141/60; PULSE 62; RESP 18; TEMP 37; O2SAT 99
[2025-06-16] VITALS: BP 159/75; PULSE 70; RESP 17; TEMP 36.9; O2SAT 99
[2025-06-16 04:00] VITALS: BP 134/64; PULSE 70; RESP 18; TEMP 37; O2SAT 99
[2025-06-16 08:00] VITALS: BP 152/67; PULSE 66; RESP 18; TEMP 36.6; O2SAT 97
[2025-06-16 08:51] LABS: BASOPHILS % 0.6 % (0.0-2.0); EOSINOPHILS % 5.5 % (0.0-5.0); HEMATOCRIT. 24.2 % (42.0-52.0); HEMOGLOBIN. 8.3 g/dL (14.0-18.0); LYMPHOCYTES % 28.3 % (20.0-50.0); MEAN PLATELET VOLUME 8.8 fl (7.4-10.4); MONOCYTES % 7.5 % (2.0-8.0); NEUTROPHILS % 58.1 % (40.0-76.0); PLATELET 342 x1000/uL (130-400); RED BLOOD CELL COUNT 2.84 mill/uL (4.7-6.1); RED CELL DISTRIBUTION WIDTH 16.5 % (11.6-14.6)
[2025-06-16 09:11] LABS: CREATININE 2.6 mg/dL (0.6-1.3); UREA NITROGEN BLOOD 62.0 mg/dL (9-23)
[2025-06-16 12:00] VITALS: BP 134/62; PULSE 66; RESP 18; TEMP 36.6; O2SAT 99
[2025-06-16 16:00] VITALS: BP 137/61; PULSE 64; RESP 18; TEMP 36.6; O2SAT 98
[2025-06-16 20:00] VITALS: BP 134/64; PULSE 64; RESP 18; TEMP 36.6; O2SAT 99
[2025-06-17] VITALS: BP 141/58; PULSE 62; RESP 17; TEMP 36.5; O2SAT 99
[2025-06-17 04:00] VITALS: BP 150/66; PULSE 89; RESP 18; TEMP 36.6; O2SAT 99
[2025-06-17 08:00] VITALS: BP 153/67; PULSE 63; RESP 18; TEMP 36.8; O2SAT 96
[2025-06-17 08:18] LABS: BASOPHILS % 1.1 % (0.0-2.0); EOSINOPHILS % 6.0 % (0.0-5.0); HEMATOCRIT. 26.9 % (42.0-52.0); HEMOGLOBIN. 8.5 g/dL (14.0-18.0); LYMPHOCYTES % 32.0 % (20.0-50.0); MEAN PLATELET VOLUME 9.1 fl (7.4-10.4); MONOCYTES % 7.3 % (2.0-8.0); NEUTROPHILS % 53.6 % (40.0-76.0); PLATELET 367 x1000/uL (130-400); RED BLOOD CELL COUNT 2.93 mill/uL (4.7-6.1); RED CELL DISTRIBUTION WIDTH 17.3 % (11.6-14.6)
[2025-06-17 08:48] LABS: CREATININE 2.5 mg/dL (0.6-1.3)
[2025-06-17 08:49] LABS: UREA NITROGEN BLOOD 57.0 mg/dL (9-23)
[2025-06-17 12:00] VITALS: BP 128/55; PULSE 55; RESP 18; TEMP 36.6; O2SAT 99
[2025-06-17 13:09] LABS: BASOPHILS % 0.9 % (0.0-2.0); EOSINOPHILS % 6.1 % (0.0-5.0); HEMATOCRIT. 23.0 % (42.0-52.0); HEMOGLOBIN. 7.6 g/dL (14.0-18.0); LYMPHOCYTES % 26.6 % (20.0-50.0); MEAN PLATELET VOLUME 9.5 fl (7.4-10.4); MONOCYTES % 8.0 % (2.0-8.0); NEUTROPHILS % 58.4 % (40.0-76.0); PLATELET 363 x1000/uL (130-400); RED BLOOD CELL COUNT 2.63 mill/uL (4.7-6.1); RED CELL DISTRIBUTION WIDTH 16.2 % (11.6-14.6)
[2025-06-17 13:17] LABS: CREATININE 2.4 mg/dL (0.6-1.3); UREA NITROGEN BLOOD 61.0 mg/dL (9-23)
[2025-06-17] MEDS: SODIUM ZIRCONIUM CYCLOSILICATE 10GM/PACKET PO NR (14:49)
[2025-06-17 16:00] VITALS: BP_SYST 124; BP_SYST 132; BP_DIAS 64; BP_DIAS 79; PULSE 60; PULSE 75; RESP 18; RESP 19; TEMP 36.5; TEMP 36.7; O2SAT 100; O2SAT 98
[2025-06-17 20:00] VITALS: BP 129/57; PULSE 72; RESP 18; TEMP 36.6; O2SAT 99
[2025-06-18] VITALS: BP 107/59; PULSE 71; RESP 18; TEMP 36.5; O2SAT 99
[2025-06-18 04:00] VITALS: BP 148/55; PULSE 67; RESP 17; TEMP 36.6; O2SAT 99
[2025-06-18 08:00] VITALS: BP 124/53; PULSE 66; RESP 18; TEMP 36.8; O2SAT 99
[2025-06-18 12:00] VITALS: BP 126/56; PULSE 61; RESP 18; TEMP 36.6; O2SAT 100
[2025-06-18 16:00] VITALS: BP 128/50; PULSE 65; RESP 18; TEMP 36.6; O2SAT 100
[2025-06-18] MEDS: FERROUS SULFATE 325MG TABLET PO SCH (17:40)
[2025-06-18 20:00] VITALS: BP 139/58; PULSE 69; RESP 20; TEMP 36.9; O2SAT 100
[2025-06-19] VITALS (12 sets, daily range): BP systolic 113–136; BP diastolic 51–68; PULSE 65–85; RESP 18–20; TEMP 36.6–37.2; O2SAT 96–99
[2025-06-19 06:59] LABS: BASOPHILS % 1.1 % (0.0-2.0); EOSINOPHILS % 6.8 % (0.0-5.0); LYMPHOCYTES % 32.2 % (20.0-50.0); MEAN PLATELET VOLUME 9.4 fl (7.4-10.4); MONOCYTES % 8.6 % (2.0-8.0); NEUTROPHILS % 51.3 % (40.0-76.0); PLATELET 332 x1000/uL (130-400); RED BLOOD CELL COUNT 2.26 mill/uL (4.7-6.1); RED CELL DISTRIBUTION WIDTH 16.8 % (11.6-14.6)
[2025-06-19 07:12] LABS: CREATININE 2.4 mg/dL (0.6-1.3); UREA NITROGEN BLOOD 76.0 mg/dL (9-23)
[2025-06-19 07:53] LABS: HEMATOCRIT. 19.6 % (42.0-52.0); HEMOGLOBIN. 6.7 g/dL (14.0-18.0)
[2025-06-20] VITALS (11 sets, daily range): BP systolic 123–149; BP diastolic 58–69; PULSE 66–81; RESP 18; TEMP 36.5–37.4; O2SAT 95–100
[2025-06-20 08:02] LABS: BASOPHILS % 0.8 % (0.0-2.0); EOSINOPHILS % 4.3 % (0.0-5.0); LYMPHOCYTES % 24.1 % (20.0-50.0); MEAN PLATELET VOLUME 9.7 fl (7.4-10.4); MONOCYTES % 8.7 % (2.0-8.0); NEUTROPHILS % 62.1 % (40.0-76.0); PLATELET 305 x1000/uL (130-400); RED BLOOD CELL COUNT 2.37 mill/uL (4.7-6.1); RED CELL DISTRIBUTION WIDTH 16.9 % (11.6-14.6)
[2025-06-20 08:10] LABS: HEMATOCRIT. 20.6 % (42.0-52.0); HEMOGLOBIN. 6.9 g/dL (14.0-18.0)
[2025-06-20 08:12] LABS: CREATININE 2.5 mg/dL (0.6-1.3)
[2025-06-20 08:23] LABS: UREA NITROGEN BLOOD 113.0 mg/dL (9-23)
[2025-06-20] MEDS: SODIUM POLYSTYRENE SULFONATE 15 G/60 ML BOT PO SCH (09:12)
[2025-06-20] MEDS: EPOETIN ALFA-EPBX 4,000 UNIT/ML VIAL SUBCUT SCH (21:10)
[2025-06-20] MEDS ORDERED: NALOXONE 4 MG in SODIUM CHLORIDE 0.9% 246 ML IV SCH (23:15)
[2025-06-21] VITALS (8 sets, daily range): BP systolic 120–148; BP diastolic 52–68; PULSE 65–76; RESP 16–20; TEMP 36.05844–36.9; O2SAT 96–100
[2025-06-21] MEDS: SODIUM BICARBONATE 650MG TABLET PO SCH (00:08)
[2025-06-21 07:40] LABS: BASOPHILS % 0.4 % (0.0-2.0); EOSINOPHILS % 5.5 % (0.0-5.0); LYMPHOCYTES % 23.7 % (20.0-50.0); MEAN PLATELET VOLUME 9.6 fl (7.4-10.4); MONOCYTES % 8.4 % (2.0-8.0); NEUTROPHILS % 62.0 % (40.0-76.0); PLATELET 272 x1000/uL (130-400); RED BLOOD CELL COUNT 2.28 mill/uL (4.7-6.1); RED CELL DISTRIBUTION WIDTH 16.7 % (11.6-14.6)
[2025-06-21 08:03] LABS: CREATININE 2.3 mg/dL (0.6-1.3)
[2025-06-21 08:14] LABS: HEMATOCRIT. 19.9 % (42.0-52.0); HEMOGLOBIN. 6.8 g/dL (14.0-18.0)
[2025-06-21 09:08] LABS: UREA NITROGEN BLOOD 104.0 mg/dL (9-23)
[2025-06-21] MEDS ORDERED: LIDOCAINE HCL 1% 10 MG/ML 10ML VIAL ONE (13:18)
[2025-06-21] MEDS: PANTOPRAZOLE SODIUM 40 MG/VIAL IV NR (16:16)
[2025-06-21 16:46] LABS: INR 1.0
[2025-06-21] MEDS: PANTOPRAZOLE SODIUM 40 MG/VIAL IV SCH (21:06)
[2025-06-22] VITALS: BP 149/67; PULSE 63; RESP 18; TEMP 36.9; O2SAT 100
[2025-06-22 04:00] VITALS: BP 150/69; PULSE 69; RESP 18; TEMP 36.4; O2SAT 100
[2025-06-22 06:39] LABS: BASOPHILS % 0.5 % (0.0-2.0); EOSINOPHILS % 5.8 % (0.0-5.0); HEMATOCRIT. 25.3 % (42.0-52.0); HEMOGLOBIN. 8.6 g/dL (14.0-18.0); LYMPHOCYTES % 21.2 % (20.0-50.0); MEAN PLATELET VOLUME 9.6 fl (7.4-10.4); MONOCYTES % 7.3 % (2.0-8.0); NEUTROPHILS % 65.2 % (40.0-76.0); PLATELET 299 x1000/uL (130-400); RED BLOOD CELL COUNT 2.86 mill/uL (4.7-6.1); RED CELL DISTRIBUTION WIDTH 16.8 % (11.6-14.6)
[2025-06-22 07:00] LABS: CREATININE 2.2 mg/dL (0.6-1.3)
[2025-06-22 07:02] LABS: UREA NITROGEN BLOOD 79.0 mg/dL (9-23)
[2025-06-22 07:03] LABS: LACTATE DEHYDROGENASE 226.0 IU/L (120-246)
[2025-06-22 07:08] LABS: FOLIC ACID (FOLATE) SERUM 12.06 ng/mL (>5.38)
[2025-06-22 07:09] LABS: VITAMIN B12 SERUM 1036 pg/mL (211-911)
[2025-06-22 08:00] VITALS: BP 149/68; PULSE 48; RESP 20; TEMP 36.6; O2SAT 95
[2025-06-22 12:00] VITALS: BP 143/64; PULSE 69; RESP 20; TEMP 36.3; O2SAT 95
[2025-06-22 16:00] VITALS: BP 142/62; PULSE 71; RESP 20; TEMP 36.4; O2SAT 96
[2025-06-22 20:00] VITALS: BP 135/61; PULSE 68; RESP 18; TEMP 36.6; O2SAT 97
[2025-06-23] VITALS: BP 134/92; PULSE 67; RESP 19; TEMP 36.7; O2SAT 97
[2025-06-23 04:00] VITALS: BP 146/90; PULSE 69; RESP 19; TEMP 36.3; O2SAT 96
[2025-06-23 08:00] VITALS: BP 102/66; PULSE 77; RESP 20; TEMP 37.3
[2025-06-23 08:36] LABS: BASOPHILS % 0.9 % (0.0-2.0); EOSINOPHILS % 5.9 % (0.0-5.0); HEMATOCRIT. 24.2 % (42.0-52.0); HEMOGLOBIN. 8.1 g/dL (14.0-18.0); LYMPHOCYTES % 21.8 % (20.0-50.0); MEAN PLATELET VOLUME 9.7 fl (7.4-10.4); MONOCYTES % 8.0 % (2.0-8.0); NEUTROPHILS % 63.4 % (40.0-76.0); PLATELET 326 x1000/uL (130-400); RED BLOOD CELL COUNT 2.73 mill/uL (4.7-6.1); RED CELL DISTRIBUTION WIDTH 16.9 % (11.6-14.6)
[2025-06-23 08:52] LABS: CREATININE 2.1 mg/dL (0.6-1.3); UREA NITROGEN BLOOD 66.0 mg/dL (9-23)
[2025-06-23 10:52] VITALS: BP 102/66; PULSE 78; TEMP 98.2; O2SAT 100
[2025-06-23 12:00] VITALS: BP 136/88; PULSE 62; RESP 20; TEMP 35.9; O2SAT 99
== END 2025-06-23 14:40 | DRG 640 ==
LOC: ER 12:09 → 8WST 17:18 → EDBEDREQ 17:21 → EDBEDREQTM 17:21 → ENRESERV 17:34 → 7WST 06-22 13:38 → 8WST 06-22 13:40
PROVIDERS: ADMIT Family Medicine Adult Medicine; ATTEND Family Medicine Adult Medicine
PROC: 30233N1 Transfusion of Nonautologous Red Blood Cells into Peripheral Vein, Percutaneous Approach (ICD-10-PCS; 2025-06-19)
PROC: 02HV33Z Insertion of Infusion Device into Superior Vena Cava, Percutaneous Approach (ICD-10-PCS; principal; 2025-06-21)
PROC: B548ZZA Ultrasonography of Superior Vena Cava, Guidance (ICD-10-PCS; 2025-06-21)
PROC: B5181ZA Fluoroscopy of Superior Vena Cava using Low Osmolar Contrast, Guidance (ICD-10-PCS; 2025-06-21)
DX: E87.5 Hyperkalemia (principal); N18.6 End stage renal disease; N17.9 Acute kidney failure, unspecified; I13.2 Hypertensive heart and chronic kidney disease with heart failure and with stage 5 chronic kidney disease, or end stage renal disease; F03.90 Unspecified dementia, unspecified severity, without behavioral disturbance, psychotic disturbance, mood disturbance, and anxiety; E11.22 Type 2 diabetes mellitus with diabetic chronic kidney disease; E78.00 Pure hypercholesterolemia, unspecified; E87.6 Hypokalemia; I50.9 Heart failure, unspecified; Z87.11 Personal history of peptic ulcer disease; Z99.2 Dependence on renal dialysis; D63.8 Anemia in other chronic diseases classified elsewhere
CPT/HCPCS: 36415; 36573; 80048; 80061; 80076; 81003; 82607; 82728; 82746; 82784; 82962; 83036; 83540; 83550; 83615; 84132; 84443; 85014; 85018; 85025; 85044; 86334; 86850; 86880; 86900; 86920; 93005; 93970; 94640; 96374; 96375; 99291; A4606; A6449; C1725; J0885; J1650; J1815; J1938; J2003; J2470; J3490; P9016